=== PATIENT | male | born 1940 | race Caucasian/White ===

== ENCOUNTER → 2018-10-28 | Outpatient (CLI) | payer MEDICARE ==
[~2018-10-28] MED LIST: CLON-412 PO; COUM1TAB17 PO; COUM2.5T17 PO; FURO40TA2 PO; LISI40TA PO; LISI40TAB PO; METF10004 PO; MIRA3350 PO; OXYC1TAB15 PO; PERC5TAB12 PO; PRAV10TA4 PO; PRAV40TA2 PO; PROP20TA72 PO
[2018-10-28 10:06] LABS: HEMATOCRIT 43.6 % (42.0-52.0); HEMOGLOBIN 13.8 g/dl (13.5-17.5); MEAN CORPUSCULAR HEMOGLOBIN 30.1 pg (27.0-33.0); MEAN CORPUSCULAR HGB CONC 31.7 g/dl (32.0-36.5); MEAN CORPUSCULAR VOLUME 95.2 fl (80.0-96.0); PLATELET COUNT, AUTOMATED 210 10^3/uL (150-450); RED BLOOD COUNT 4.58 10^6/uL (4.30-6.10); WHITE BLOOD COUNT 8.1 10^3/uL (4.0-10.0)
--- NOTE | 2018-10-28 10:16 | REP ---
Chest two views HISTORY: Right knee arthritis Comparison: 03/19/2016 The lungs are clear. The cardiac silhouette is enlarged. The pulmonary vasculature is normal in appearance. The bony structure is intact. IMPRESSION: Cardiomegaly. Electronically Signed by Sony Luu MD 10/28/2018 10:08 A
[2018-10-28 10:24] LABS: INR 2.43; PROTHROMBIN TIME 26.9 SECONDS (12.1-14.4)
[2018-10-28 10:32] LABS: ERYTHROCYTE SEDIMENTATION RATE 24 mm/hr (0-20)
[2018-10-28 10:35] LABS: ALBUMIN 3.4 GM/DL (3.2-5.2); ALT/SGPT 18 U/L (12-78); BLOOD UREA NITROGEN 17 MG/DL (7-18); CALCIUM LEVEL 8.8 MG/DL (8.8-10.2); CARBON DIOXIDE LEVEL 30 MEQ/L (21-32); CHLORIDE LEVEL 104 MEQ/L (98-107); CREATININE FOR GFR 0.86 MG/DL (0.70-1.30); GLOMERULAR FILTRATION RATE > 60.0 (>42); GLUCOSE, FASTING 116 MG/DL (70-100); POTASSIUM SERUM 4.8 MEQ/L (3.5-5.1); SODIUM LEVEL 142 MEQ/L (136-145); TOTAL PROTEIN 7.6 GM/DL (6.4-8.2)
--- NOTE | 2018-10-28 22:04 | ECGEPIP ---
Stationary ECG Study 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
== END ==
LOC: M LAB 09:02
PROVIDERS: ATTEND Orthopaedic Surgery
DX: Z01.818 Encounter for other preprocedural examination (principal); I48.91 Unspecified atrial fibrillation; I51.5 Myocardial degeneration; M16.11 Unilateral primary osteoarthritis, right hip

== ENCOUNTER 2018-11-26 20:46 | Emergency (ER) | payer MEDICARE ==
[~2018-11-26] VITALS: Ht 180.3 cm; Wt 143.2 kg
[2018-11-26 22:19] LABS: BASO % 0.5 % (0.0-1.0); EOS # 0.1 10^3/uL (0.0-0.50); EOS % 1.8 % (0.0-3.0); HEMATOCRIT 44.3 % (42.0-52.0); LYMPH # 1.4 10^3/uL (1.5-4.5); LYMPH % 17.7 % (24.0-44.0); MEAN CORPUSCULAR HGB CONC 31.6 g/dl (32.0-36.5); MEAN CORPUSCULAR VOLUME 94.9 fl (80.0-96.0); MONO # 0.7 10^3/uL (0.0-0.8); MONO % 8.3 % (0.0-5.0); NEUTROPHILS # 5.7 10^3/uL (1.8-7.7); NEUTROPHILS % 71.4 % (36.0-66.0); PLATELET COUNT, AUTOMATED 182 10^3/uL (150-450); RED BLOOD COUNT 4.67 10^6/uL (4.30-6.10); WHITE BLOOD COUNT 7.9 10^3/uL (4.0-10.0)
[2018-11-26 22:49] LABS: ERYTHROCYTE SEDIMENTATION RATE 54 mm/hr (0-20)
[2018-11-26 22:52] LABS: BLOOD UREA NITROGEN 18 MG/DL (7-18); C REACTIVE PROTEIN QUANTITATIV 1.44 MG/DL (0.00-0.30); CALCIUM LEVEL 8.5 MG/DL (8.8-10.2); CARBON DIOXIDE LEVEL 29 MEQ/L (21-32); CHLORIDE LEVEL 105 MEQ/L (98-107); CREATININE FOR GFR 0.97 MG/DL (0.70-1.30); GLOMERULAR FILTRATION RATE > 60.0 (>42); GLUCOSE, FASTING 174 MG/DL (70-100); POTASSIUM SERUM 4.1 MEQ/L (3.5-5.1); SODIUM LEVEL 140 MEQ/L (136-145)
--- NOTE | 2018-11-26 23:03 | REPVR ---
EXAM: US Duplex Right Lower Extremity Veins, Limited EXAM DATE/TIME: 11/26/2018 10:09 PM CLINICAL HISTORY: 78 years old, male; Signs and symptoms; Swelling (edema) of limb; Lower extremity, right; Additional info: Calf swelling right TECHNIQUE: Real-time Duplex ultrasound of the Right Lower Extremity with 2-D valencia scale, color Doppler flow and spectral waveform analysis. Limited exam was focused on the right lower extremity veins. COMPARISON: No relevant prior studies available. FINDINGS: Right deep veins: Unremarkable. The common femoral, femoral and popliteal veins are patent without thrombus. Normal Doppler waveforms. Normal compressibility and/or augmentation response. Right superficial veins: Unremarkable. Saphenofemoral junction is patent without thrombus. Soft tissues: Subcutaneous edema. IMPRESSION: No sonographic evidence of deep vein thrombosis. Electronically signed by: Naresh Florentino On 11/26/2018 23:03:21 PM
[2018-11-27] MEDS ORDERED: CLEO300C2 PO (00:50)
[2018-11-27] MEDS ORDERED: CLINDAMYCIN 150 MG CAP PO ONE (01:00)
[2018-11-27 01:02] VITALS: BP 148/78
--- NOTE | 2018-11-28 11:50 | REP ---
RIGHT FOOT SERIES: Four views of the right foot are performed. I see no definite fracture. There may be an old fracture at the base of the 2nd proximal phalanx. The distal cortex of the 5th distal phalanx is mildly blurred. I cannot exclude underlying osteomyelitis. Otherwise. No overt osseous destruction is seen, and there is no periosteal reaction. There is mild to moderate inferior calcaneal spurring. There are mild scattered vascular calcifications. There is mild diffuse narrowing, sclerosis, and spurring at the intertarsal and tarsal/metatarsal joints. There is diffuse narrowing of the interphalangeal joints. There is slight narrowing of the 1st metatarsophalangeal joint. IMPRESSION: Degenerative changes. Blurriness of the cortical margin of the 5th distal phalanx. Cannot exclude underlying osteomyelitis Otherwise, no overt osseous destruction or periosteal reaction. I see no acute fracture. Electronically Signed by Ronnie Ptety MD 11/28/2018 10:58 P
--- NOTE | 2018-11-29 12:28 | ED PDOC ---
Post-Departure Follow-Up dr robertson faxed formal report of right foot for fu Rosa Flores MD Nov 29, 2018 12:28
== END 2018-11-27 01:04 | disposition home or self-care (01) ==
LOC: M ED 20:46
DX: L03.031 Cellulitis of right toe (principal); M79.89 Other specified soft tissue disorders; I87.8 Other specified disorders of veins; I10 Essential (primary) hypertension; I48.91 Unspecified atrial fibrillation; E11.9 Type 2 diabetes mellitus without complications; I27.20 Pulmonary hypertension, unspecified; Z87.442 Personal history of urinary calculi; Z79.899 Other long term (current) drug therapy; Z79.01 Long term (current) use of anticoagulants; Z79.84 Long term (current) use of oral hypoglycemic drugs

== ENCOUNTER → 2018-12-01 | Outpatient (REF) | payer MEDICARE ==
[~2018-12-01] MED LIST changes: +CLEO300C2 PO
== END ==
LOC: M LAB REF 10:53
PROVIDERS: ATTEND Nurse Practitioner Adult Health
DX: R19.7 Diarrhea, unspecified (principal); L03.031 Cellulitis of right toe; L97.829 Non-pressure chronic ulcer of other part of left lower leg with unspecified severity

== ENCOUNTER → 2018-12-26 | Outpatient (REF) | payer MEDICARE | LOC: M LABDRAW1 15:38 | PROVIDERS: ATTEND Podiatrist | DX: E11.51 Type 2 diabetes mellitus with diabetic peripheral angiopathy without gangrene (principal); L89.892 Pressure ulcer of other site, stage 2; M79.671 Pain in right foot ==

== ENCOUNTER → 2018-12-28 | Outpatient (REF) | payer MEDICARE | LOC: M LAB REF 13:11 | PROVIDERS: ATTEND Nurse Practitioner Adult Health | DX: L97.829 Non-pressure chronic ulcer of other part of left lower leg with unspecified severity (principal) ==

== ENCOUNTER → 2019-01-12 | Outpatient (REF) | payer MEDICARE ==
[2019-01-12 13:44] LABS: BASO # 0.1 10^3/uL (0.0-0.2); BASO % 0.9 % (0.0-1.0); EOS # 0.1 10^3/uL (0.0-0.50); EOS % 1.2 % (0.0-3.0); LYMPH # 1.3 10^3/uL (1.5-4.5); LYMPH % 19.2 % (24.0-44.0); MEAN CORPUSCULAR HEMOGLOBIN 30.7 pg (27.0-33.0); MEAN CORPUSCULAR VOLUME 99.3 fl (80.0-96.0); MONO # 0.5 10^3/uL (0.0-0.8); NEUTROPHILS # 4.6 10^3/uL (1.8-7.7); NEUTROPHILS % 70.4 % (36.0-66.0); PLATELET COUNT, AUTOMATED 179 10^3/uL (150-450); RED BLOOD COUNT 4.23 10^6/uL (4.30-6.10); WHITE BLOOD COUNT 6.5 10^3/uL (4.0-10.0)
== END ==
LOC: M LABDRAW1 11:38
PROVIDERS: ATTEND Podiatrist
DX: R79.82 Elevated C-reactive protein (CRP) (principal); L89.892 Pressure ulcer of other site, stage 2; E11.51 Type 2 diabetes mellitus with diabetic peripheral angiopathy without gangrene

== ENCOUNTER → 2019-01-17 | Outpatient (REF) | payer MEDICARE ==
[~2019-01-17] MED LIST changes: +LISI40TA52 PO; -LISI40TAB PO
== END ==
LOC: M LABDRAW1 11:54
PROVIDERS: ATTEND Podiatrist
DX: M20.40 Other hammer toe(s) (acquired), unspecified foot (principal); L89.892 Pressure ulcer of other site, stage 2; M86.28 Subacute osteomyelitis, other site

== ENCOUNTER → 2019-03-02 | Outpatient (REF) | payer MEDICARE | LOC: M LAB REF 17:02 | PROVIDERS: ATTEND Internal Medicine | DX: M86.9 Osteomyelitis, unspecified (principal) ==

== ENCOUNTER → 2019-03-20 | Outpatient (REF) | payer MEDICARE ==
[2019-03-20 13:19] LABS: BASO # 0.1 10^3/uL (0.0-0.2); BASO % 0.8 % (0.0-1.0); EOS # 0.1 10^3/uL (0.0-0.50); EOS % 1.4 % (0.0-3.0); HEMATOCRIT 43.8 % (42.0-52.0); HEMOGLOBIN 13.6 g/dl (13.5-17.5); LYMPH # 1.2 10^3/uL (1.5-4.5); LYMPH % 18.5 % (24.0-44.0); MEAN CORPUSCULAR HEMOGLOBIN 30.4 pg (27.0-33.0); MEAN CORPUSCULAR HGB CONC 31.1 g/dl (32.0-36.5); MONO # 0.5 10^3/uL (0.0-0.8); MONO % 7.4 % (0.0-5.0); NEUTROPHILS # 4.8 10^3/uL (1.8-7.7); NEUTROPHILS % 71.7 % (36.0-66.0); PLATELET COUNT, AUTOMATED 172 10^3/uL (150-450); RED BLOOD COUNT 4.47 10^6/uL (4.30-6.10); WHITE BLOOD COUNT 6.7 10^3/uL (4.0-10.0)
[2019-03-20 14:11] LABS: ERYTHROCYTE SEDIMENTATION RATE 25 mm/hr (0-20)
== END ==
LOC: M SFHCPLAZ 10:34
PROVIDERS: ATTEND Internal Medicine Infectious Disease
DX: M86.9 Osteomyelitis, unspecified (principal)
CPT/HCPCS: 85025; 85652; 86140; G0463

== ENCOUNTER → 2019-04-04 | Outpatient (REF) | payer MEDICARE | LOC: M LAB REF 17:17 | PROVIDERS: ATTEND Internal Medicine | DX: M86.9 Osteomyelitis, unspecified (principal) ==

== ENCOUNTER → 2019-06-15 | Outpatient (CLI) | payer MEDICARE ==
[~2019-06-15] MED LIST changes: +SPIR-10 PO
[2019-06-15 08:49] LABS: HEMATOCRIT 43.9 % (42.0-52.0); HEMOGLOBIN 13.9 g/dl (13.5-17.5); MEAN CORPUSCULAR HEMOGLOBIN 31.2 pg (27.0-33.0); MEAN CORPUSCULAR HGB CONC 31.7 g/dl (32.0-36.5); MEAN CORPUSCULAR VOLUME 98.4 fl (80.0-96.0); PLATELET COUNT, AUTOMATED 168 10^3/uL (150-450); RED BLOOD COUNT 4.46 10^6/uL (4.30-6.10); WHITE BLOOD COUNT 7.5 10^3/uL (4.0-10.0)
[2019-06-15 09:15] LABS: ERYTHROCYTE SEDIMENTATION RATE 27 mm/hr (0-20)
[2019-06-15 09:19] LABS: ALBUMIN 3.7 GM/DL (3.2-5.2); ALT/SGPT 16 U/L (12-78); BILIRUBIN,TOTAL 1.4 MG/DL (0.2-1.0); BLOOD UREA NITROGEN 19 MG/DL (7-18); CARBON DIOXIDE LEVEL 32 MEQ/L (21-32); CHLORIDE LEVEL 104 MEQ/L (98-107); CREATININE FOR GFR 0.89 MG/DL (0.70-1.30); GLOMERULAR FILTRATION RATE > 60.0 (>42); GLUCOSE, FASTING 111 MG/DL (70-100); POTASSIUM SERUM 4.5 MEQ/L (3.5-5.1); SODIUM LEVEL 141 MEQ/L (136-145); TOTAL PROTEIN 7.6 GM/DL (6.4-8.2)
[2019-06-15 09:25] LABS: INR 2.23; PROTHROMBIN TIME 24.5 SECONDS (11.8-14.0)
--- NOTE | 2019-06-15 11:07 | ECGEPIP ---
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
--- NOTE | 2019-06-15 22:00 | REP ---
Nickel: Preoperative assessment. Technique: PA and lateral. Comparison: 10/28/2018. Findings: Moderate right pleural effusion and right lower lobe atelectasis is appreciated. Interstitial edema cannot be excluded. Cardiomegaly noted. No pneumothorax. Skeletal structures intact. Impression: Chronic stable cardiomegaly with evidence to suggest mild interstitial edema including moderate right pleural effusion and right basilar atelectasis. Electronically Signed by Ranjan Moreira MD 06/15/2019 09:52 P
== END ==
LOC: M LAB 07:48
PROVIDERS: ATTEND Orthopaedic Surgery
DX: Z01.818 Encounter for other preprocedural examination (principal); I48.91 Unspecified atrial fibrillation; E11.9 Type 2 diabetes mellitus without complications

== ENCOUNTER → 2020-05-11 | Emergency (ER) | payer MEDICARE | END | disposition home or self-care (01) | LOC: M ED 10:10 | DX: S89.92XA Unspecified injury of left lower leg, initial encounter (principal); V43.42XA Person boarding or alighting a car injured in collision with other type car, initial encounter ==

== ENCOUNTER → 2021-11-10 | Outpatient (CLI) | payer MEDICARE ==
[~2021-11-10] MED LIST changes: -LISI40TA PO; +LISI40TA4 PO; -OXYC1TAB15 PO; +OXYC7.5T3 PO
[2021-11-10 16:08] LABS: HEMATOCRIT 42.8 % (42.0-52.0); MEAN CORPUSCULAR HEMOGLOBIN 31.2 pg (27.0-33.0); MEAN CORPUSCULAR HGB CONC 30.4 g/dl (32.0-36.5); MEAN CORPUSCULAR VOLUME 102.6 fl (80.0-96.0); PLATELET COUNT, AUTOMATED 222 10^3/uL (150-450); RED BLOOD COUNT 4.17 10^6/uL (4.30-6.10); WHITE BLOOD COUNT 7.3 10^3/uL (4.0-10.0)
[2021-11-10 16:27] LABS: ALBUMIN 3.8 GM/DL (3.2-5.2); BILIRUBIN,TOTAL 0.8 MG/DL (0.2-1.0); CALCIUM LEVEL 9.2 MG/DL (8.8-10.2); CREATININE FOR GFR 1.41 MG/DL (0.70-1.30); GLOMERULAR FILTRATION RATE 51.4 (>35); MAGNESIUM LEVEL 2.3 MG/DL (1.8-2.4); POTASSIUM SERUM 4.4 MEQ/L (3.5-5.1); TOTAL PROTEIN 8.1 GM/DL (6.4-8.2)
== END ==
LOC: M WUC 10:57
PROVIDERS: ATTEND Physician Assistant
DX: I51.7 Cardiomegaly (principal); I50.9 Heart failure, unspecified; J81.0 Acute pulmonary edema; R07.9 Chest pain, unspecified; I25.10 Atherosclerotic heart disease of native coronary artery without angina pectoris

== ENCOUNTER → 2022-04-15 | Outpatient (CLI) | payer MEDICARE ==
[~2022-04-15] MED LIST changes: +AMIO200T37 PO; +AMOX875T2 PO; +BIMA01SOL OU; +COMB0.2S OU; +ELIQ2.5T PO; +LEVO750T13 PO; +LEXA1TAB PO; +MIDO10TA PO; +TORS20TA2 PO
== END ==
LOC: M WUC 15:30
PROVIDERS: ATTEND Nurse Practitioner Adult Health
DX: R15.9 Full incontinence of feces (principal); R32 Unspecified urinary incontinence; M25.78 Osteophyte, vertebrae; R93.7 Abnormal findings on diagnostic imaging of other parts of musculoskeletal system

== ENCOUNTER 2022-04-16 12:30 | Emergency (ER) | payer MEDICARE ==
[~2022-04-16] VITALS: Ht 182.9 cm; Wt 136.4 kg
[2022-04-16 15:25] LABS: BASO % 0.2 % (0.0-1.0); EOS # 0.1 10^3/uL (0.0-0.5); EOS % 0.5 % (0.0-3.0); HEMATOCRIT 38.6 % (42.0-52.0); LYMPH % 7.1 % (24.0-44.0); MEAN CORPUSCULAR HEMOGLOBIN 28.7 pg (27.0-33.0); MEAN CORPUSCULAR HGB CONC 31.1 g/dl (32.0-36.5); MEAN CORPUSCULAR VOLUME 92.3 fl (80.0-96.0); MONO % 7.1 % (2.0-8.0); NEUTROPHILS # 11.9 10^3/uL (1.5-8.5); NEUTROPHILS % 84.2 % (36.0-66.0); PLATELET COUNT, AUTOMATED 329 10^3/uL (150-450); RED BLOOD COUNT 4.18 10^6/uL (4.30-6.10); WHITE BLOOD COUNT 14.1 10^3/uL (4.0-10.0)
[2022-04-16] MEDS ORDERED: PERCOCET 5MG/325MG TAB PO ONE (15:25)
[2022-04-16 15:39] LABS: INR 1.46; PROTHROMBIN TIME 18.2 SECONDS (12.7-14.5)
[2022-04-16 15:40] LABS: PARTIAL THROMBOPLASTIN TIME 35.9 SECONDS (25.9-37.0)
[2022-04-16 15:44] LABS: CALCIUM LEVEL 8.6 MG/DL (8.8-10.2); CREATININE FOR GFR 3.3 MG/DL (0.70-1.30); GLOMERULAR FILTRATION RATE 19.2 (>35); POTASSIUM SERUM 5.8 MEQ/L (3.5-5.1)
[2022-04-16 15:46] LABS: RSV AMPLIFICATION NEGATIVE (NEGATIVE)
[2022-04-16 19:55] VITALS: BP 146/80
== END 2022-04-16 20:19 | disposition short-term general hospital (02) ==
LOC: EDBD 12:30 → M ED 12:30
DX: S22.069A Unspecified fracture of T7-T8 vertebra, initial encounter for closed fracture (principal); W01.10XA Fall on same level from slipping, tripping and stumbling with subsequent striking against unspecified object, initial encounter; Y92.099 Unspecified place in other non-institutional residence as the place of occurrence of the external cause; R39.14 Feeling of incomplete bladder emptying; R15.9 Full incontinence of feces; K56.41 Fecal impaction; R91.8 Other nonspecific abnormal finding of lung field; J90 Pleural effusion, not elsewhere classified; N20.0 Calculus of kidney; M51.36 Other intervertebral disc degeneration, lumbar region; I48.91 Unspecified atrial fibrillation; I45.19 Other right bundle-branch block; E11.9 Type 2 diabetes mellitus without complications; E78.5 Hyperlipidemia, unspecified; I27.20 Pulmonary hypertension, unspecified; Z86.73 Personal history of transient ischemic attack (TIA), and cerebral infarction without residual deficits; Z87.891 Personal history of nicotine dependence; Z79.01 Long term (current) use of anticoagulants; Z79.899 Other long term (current) drug therapy

== ENCOUNTER → 2022-05-05 | Outpatient (REF) | payer MEDICARE ==
[~2022-05-05] MED LIST changes: +CEPH500C PO; +DORZ2SOL5 OU; +LEVO1TAB40 PO; -LEVO750T13 PO; +METR-265 PO; +SERT25TA21 PO
[2022-05-05 08:35] LABS: BASO % 0.5 % (0.0-1.0); EOS # 0.2 10^3/uL (0.0-0.5); HEMATOCRIT 35.4 % (42.0-52.0); LYMPH # 1.3 10^3/uL (1.5-5.0); LYMPH % 15.3 % (24.0-44.0); MEAN CORPUSCULAR HGB CONC 31.1 g/dl (32.0-36.5); MEAN CORPUSCULAR VOLUME 93.4 fl (80.0-96.0); MONO # 0.8 10^3/uL (0.0-0.8); MONO % 9.9 % (2.0-8.0); NEUTROPHILS # 5.9 10^3/uL (1.5-8.5); NEUTROPHILS % 71.8 % (36.0-66.0); PLATELET COUNT, AUTOMATED 173 10^3/uL (150-450); RED BLOOD COUNT 3.79 10^6/uL (4.30-6.10); WHITE BLOOD COUNT 8.2 10^3/uL (4.0-10.0)
[2022-05-05 09:05] LABS: ALBUMIN 2.3 GM/DL (3.2-5.2); BILIRUBIN,TOTAL 0.9 MG/DL (0.2-1.0); CALCIUM LEVEL 8.7 MG/DL (8.8-10.2); CREATININE FOR GFR 1.33 MG/DL (0.70-1.30); GLOMERULAR FILTRATION RATE 54.8 (>35); POTASSIUM SERUM 3.8 MEQ/L (3.5-5.1); THYROID STIMULATING HORMONE 0.57 uIU/ML (0.358-3.740); TOTAL PROTEIN 6.8 GM/DL (6.4-8.2)
[2022-05-05 10:10] LABS: HEMOGLOBIN A1c 5.8 %
== END ==
LOC: SKLAB5 07:00
PROVIDERS: ATTEND Nurse Practitioner Family
DX: N17.9 Acute kidney failure, unspecified (principal); E11.9 Type 2 diabetes mellitus without complications; T14.8XXA Other injury of unspecified body region, initial encounter

== ENCOUNTER → 2022-05-15 | Outpatient (CLI) | payer MEDICARE ==
[~2022-05-15] MED LIST changes: -CEPH500C PO; -DORZ2SOL5 OU; -LEVO1TAB40 PO; +LEVO750T13 PO; -METR-265 PO; -SERT25TA21 PO
== END ==
LOC: M RAD 11:19
PROVIDERS: ATTEND Nurse Practitioner Family
DX: M79.89 Other specified soft tissue disorders (principal)

== ENCOUNTER 2022-06-21 21:15 | Inpatient (IN) | payer MEDICARE ==
[~2022-06-21] VITALS: Ht 182.9 cm; Wt 126.1 kg
[~2022-06-21 21:15] MED LIST changes: +LEVO1TAB40 PO; -LEVO750T13 PO
[2022-06-21 22:00] LABS: BASO % 0.4 % (0.0-1.0); EOS # 0.1 10^3/uL (0.0-0.5); EOS % 0.8 % (0.0-3.0); HEMATOCRIT 33.2 % (42.0-52.0); HEMOGLOBIN 9.7 g/dl (13.5-17.5); LYMPH # 0.9 10^3/uL (1.5-5.0); LYMPH % 10.3 % (24.0-44.0); MEAN CORPUSCULAR HEMOGLOBIN 27.7 pg (27.0-33.0); MEAN CORPUSCULAR HGB CONC 29.2 g/dl (32.0-36.5); MEAN CORPUSCULAR VOLUME 94.9 fl (80.0-96.0); MONO # 0.9 10^3/uL (0.0-0.8); MONO % 10.8 % (2.0-8.0); NEUTROPHILS # 6.6 10^3/uL (1.5-8.5); NEUTROPHILS % 77.2 % (36.0-66.0); PLATELET COUNT, AUTOMATED 260 10^3/uL (150-450); WHITE BLOOD COUNT 8.5 10^3/uL (4.0-10.0)
[2022-06-21] MEDS ORDERED: FUROSEMIDE 40MG/4ML VIAL (J1940) IV ONE (22:00)
[2022-06-21 22:47] LABS: CK-MB VALUE MASS < 1.0 NG/ML (<3.6); CPK CREATINE PHOSPHOKINASE 79 U/L (39-308); MB/CK RELATIVE INDEX 1.27 (< OR =4)
[2022-06-21 22:53] LABS: ALBUMIN 2.5 GM/DL (3.2-5.2); BILIRUBIN,DIRECT 0.2 MG/DL (0.0-0.2); BILIRUBIN,TOTAL 0.9 MG/DL (0.2-1.0); CALCIUM LEVEL 8.7 MG/DL (8.8-10.2); CREATININE FOR GFR 1.94 MG/DL (0.70-1.30); GLOMERULAR FILTRATION RATE 35.4 (>35); POTASSIUM SERUM 5.9 MEQ/L (3.5-5.1); TOTAL PROTEIN 7.2 GM/DL (6.4-8.2)
[2022-06-21 23:15] LABS: C REACTIVE PROTEIN QUANTITATIV 7.32 MG/DL (0.00-0.30)
[2022-06-22 00:07] LABS: CK-MB VALUE MASS < 1.0 NG/ML (<3.6); CPK CREATINE PHOSPHOKINASE 334 U/L (39-308)
[2022-06-22 00:09] LABS: ABG BASE EXCESS 4.3 (-2.0-2.0); ABG O2 SATURATION 98.9 % (95.0-99.0); ABG PARTIAL PRESSURE CO2 44.1 mmHg (35.0-45.0); ABG PARTIAL PRESSURE O2 119.9 mmHg (75.0-100.0); ABG STANDARD HCO3 28.3 MEQ/L (22.0-26.0); ABG TOTAL CO2 30.4 MEQ/L (23.0-31.0); ABG pH (ARTERIAL) 7.436 UNITS (7.350-7.450)
[2022-06-22] MEDS ORDERED: cefTRIAXone SOD 1 GM in D5W MINI-BAG PLUS 50 ML IV ONE (02:35)
[2022-06-22] MEDS ORDERED: ACETAMINOPHEN TAB 650MG DOSE (2X325MG) PO PRN (03:30)
[2022-06-22] MEDS ORDERED: DORZ2SOL5 OU (03:37)
[2022-06-22] MEDS ORDERED: SERT25TA21 PO (03:37)
[2022-06-22] MEDS ORDERED: PERCOCET 5MG/325MG TAB PO PRN ×2 (03:40)
[2022-06-22] MEDS ORDERED: MIRALAX *UNIT DOSE* 17GM PACKET PO PRN (03:40)
[2022-06-22] MEDS ORDERED: HOME MED LIST COMPLETE! XX SCH (03:40)
[2022-06-22 05:13] LABS: HEMATOCRIT 33.9 % (42.0-52.0); HEMOGLOBIN 9.9 g/dl (13.5-17.5); MEAN CORPUSCULAR HEMOGLOBIN 27.9 pg (27.0-33.0); MEAN CORPUSCULAR HGB CONC 29.2 g/dl (32.0-36.5); MEAN CORPUSCULAR VOLUME 95.5 fl (80.0-96.0); PLATELET COUNT, AUTOMATED 262 10^3/uL (150-450); RED BLOOD COUNT 3.55 10^6/uL (4.30-6.10); WHITE BLOOD COUNT 9.1 10^3/uL (4.0-10.0)
[2022-06-22 05:23] LABS: INR 1.53; PROTHROMBIN TIME 18.8 SECONDS (12.7-14.5)
[2022-06-22 05:24] LABS: PARTIAL THROMBOPLASTIN TIME 37.7 SECONDS (25.9-37.0)
[2022-06-22 05:35] VITALS: BP 114/65
[2022-06-22 05:54] LABS: CALCIUM LEVEL 8.7 MG/DL (8.8-10.2); CREATININE FOR GFR 1.77 MG/DL (0.70-1.30); GLOMERULAR FILTRATION RATE 39.4 (>35); MAGNESIUM LEVEL 2.5 MG/DL (1.8-2.4); POTASSIUM SERUM 4.4 MEQ/L (3.5-5.1)
[2022-06-22 06:32] LABS: CREATININE,RANDOM URINE 31.3 MG/DL; SODIUM,RANDOM URINE 88 MEQ/L; TOTAL PROTEIN,RANDOM URINE 40.2 MG/DL (0.0-12.0)
[2022-06-22 06:46] LABS: APPEARANCE, URINE MANUAL HAZY (CLEAR); COLOR, URINE MANUAL YELLOW (YELLOW)
[2022-06-22 06:47] LABS: BILIRUBIN, URINE MANUAL NEGATIVE (NEGATIVE); BLOOD URINE MANUAL POSITIVE (NEGATIVE); GLUCOSE, URINE (UA) MANUAL NEGATIVE (NEGATIVE); KETONE, URINE MANUAL NEGATIVE (NEGATIVE); LEUKOCYTE ESTERASE, URINE MAN POSITIVE (NEGATIVE); NITRITE, URINE MANUAL POSITIVE (NEGATIVE); PH,URINE MAN 5.5 UNITS (5.0 - 7.0); PROTEIN, URINE MANUAL TRACE mg/dL (NEGATIVE); SPECIFIC GRAVITY,URINE MANUAL 1.015 (1.002-1.035); UROBILINOGEN, URINE MANUAL NORMAL (NORMAL)
[2022-06-22 06:53] LABS: OSMOLALITY URINE 377 MOSM/KG (50-1400)
[2022-06-22 06:58] LABS: AMORPHOUS SEDIMENT, URINE SMALL AMOUNT (NEGATIVE); BACTERIA, URINE SMALL AMOUNT; HYALINE CAST, URINE NONE SEEN /lpf (0-1); RENAL EPITHELIAL CELLS, URINE SMALL AMOUNT /hpf; SQUAMOUS EPITHELIAL CELL URINE NONE SEEN /hpf (SMALL AMT); WBC, URINE TNTC /hpf (0-3)
[2022-06-22 07:26] LABS: C REACTIVE PROTEIN QUANTITATIV 7.18 MG/DL (0.00-0.30)
[2022-06-22 08:05] LABS: ERYTHROCYTE SEDIMENTATION RATE 71 mm/hr (0-20)
[2022-06-22] MEDS: DOCUSATE SODIUM 100MG CAPSULE PO SCH ×2 (08:43→21:08)
[2022-06-22] MEDS: ceFAZolin SOD 1 GM in D5W MINI-BAG PLUS 50 ML IV SCH ×2 (08:43→16:09)
[2022-06-22] MEDS: SERTRALINE HCL 25 MG TABLET PO SCH (08:43)
[2022-06-22] MEDS: FUROSEMIDE 40MG/4ML VIAL (J1940) IV SCH ×2 (08:44→21:08)
[2022-06-22] MEDS: COSOPT OCUMETER PLUS 10ML (DORZOLAMIDE/TIMOLOL) OU SCH ×2 (08:44→22:47)
[2022-06-22] MEDS: SPIRONOLACTONE 12.5MG PER 1/2 TABLET PO SCH (08:45)
[2022-06-22] MEDS: APIXABAN 2.5 MG TAB (ELIQUIS) PO SCH ×2 (08:54→21:09)
[2022-06-22] MEDS: metroNIDAZOLE 500 MG in IV 1 EA IV SCH ×2 (09:36→16:59)
[2022-06-22 10:15] LABS: CHOLESTEROL RISK RATIO 2.348 (<5)
[2022-06-22 10:27] LABS: HEMOGLOBIN A1c 5.6 %
[2022-06-22 12:15] LABS: FREE T4 2.79 NG/DL (0.76-1.46); THYROID STIMULATING HORMONE 0.024 uIU/ML (0.358-3.740)
[2022-06-22 12:17] VITALS: BP 113/63
[2022-06-22 14:00] VITALS: BP 120/70
[2022-06-22] MEDS: NYSTATIN 100,000 UNITS/GM TOPICAL PWD 15 GM TOP PRN (14:20)
[2022-06-22] MEDS: PRAVASTATIN 20 MG TAB PO SCH (17:00)
[2022-06-22] MEDS: AMIODARONE 200 MG TAB (PACERONE) PO SCH (21:08)
[2022-06-22] MEDS: LATANOPROST 0.005% OPHTH SOLN 2.5 ML OU SCH (21:08)
[2022-06-22 22:00] VITALS: BP 105/62
[2022-06-23] MEDS: ceFAZolin SOD 1 GM in D5W MINI-BAG PLUS 50 ML IV SCH ×2 (01:06→08:35)
[2022-06-23] MEDS: metroNIDAZOLE 500 MG in IV 1 EA IV SCH (02:13)
[2022-06-23 04:48] VITALS: BP 120/73
[2022-06-23 06:48] LABS: HEMATOCRIT 32.7 % (42.0-52.0); HEMOGLOBIN 9.3 g/dl (13.5-17.5); MEAN CORPUSCULAR HEMOGLOBIN 27.2 pg (27.0-33.0); MEAN CORPUSCULAR HGB CONC 28.4 g/dl (32.0-36.5); MEAN CORPUSCULAR VOLUME 95.6 fl (80.0-96.0); PLATELET COUNT, AUTOMATED 249 10^3/uL (150-450); RED BLOOD COUNT 3.42 10^6/uL (4.30-6.10); WHITE BLOOD COUNT 9.2 10^3/uL (4.0-10.0)
[2022-06-23 07:27] LABS: CALCIUM LEVEL 8.7 MG/DL (8.8-10.2); CREATININE FOR GFR 1.66 MG/DL (0.70-1.30); GLOMERULAR FILTRATION RATE 42.4 (>35); MAGNESIUM LEVEL 2.6 MG/DL (1.8-2.4); POTASSIUM SERUM 4.2 MEQ/L (3.5-5.1)
[2022-06-23] MEDS: FUROSEMIDE 40MG/4ML VIAL (J1940) IV SCH ×2 (08:13→22:29)
[2022-06-23] MEDS: SPIRONOLACTONE 12.5MG PER 1/2 TABLET PO SCH (08:21)
[2022-06-23] MEDS: SERTRALINE HCL 25 MG TABLET PO SCH (08:22)
[2022-06-23] MEDS: APIXABAN 2.5 MG TAB (ELIQUIS) PO SCH ×2 (08:22→22:29)
[2022-06-23] MEDS: DOCUSATE SODIUM 100MG CAPSULE PO SCH ×2 (08:22→22:29)
[2022-06-23] MEDS: COSOPT OCUMETER PLUS 10ML (DORZOLAMIDE/TIMOLOL) OU SCH ×2 (08:22→22:30)
[2022-06-23] MEDS: DOXYCYCLINE HYCLATE 100MG TABLET PO SCH ×2 (09:48→22:29)
[2022-06-23 11:22] LABS: FREE T4 2.6 NG/DL (0.76-1.46); THYROID STIMULATING HORMONE 0.015 uIU/ML (0.358-3.740)
[2022-06-23 11:52] LABS: HEPATITIS B CORE ANTIBODY IGM NEGATIVE (NEGATIVE); HEPATITIS B SURFACE ANTIGEN NEGATIVE (NEGATIVE); HEPATITIS C VIRUS ABY INDEX < 0.0 INDEX (<0.8)
[2022-06-23] MEDS ORDERED: VANCOMYCIN HCL 750 MG, VIAL MATE ADAPTER 1 EACH in NS 250 ML IV SCH (11:55)
[2022-06-23 14:00] VITALS: BP 128/50
[2022-06-23] MEDS: PRAVASTATIN 20 MG TAB PO SCH (17:35)
[2022-06-23 21:04] VITALS: BP 115/73
[2022-06-23] MEDS: AMIODARONE 200 MG TAB (PACERONE) PO SCH (22:29)
[2022-06-23] MEDS: LATANOPROST 0.005% OPHTH SOLN 2.5 ML OU SCH (22:29)
[2022-06-23] MEDS: DIMETHICONE 2% OINTMENT(VANICREAM) 70GM TUBE TOP SCH (22:30)
[2022-06-24 05:51] LABS: HEMOGLOBIN 10.4 g/dl (13.5-17.5); MEAN CORPUSCULAR HGB CONC 29.7 g/dl (32.0-36.5); MEAN CORPUSCULAR VOLUME 94.3 fl (80.0-96.0); PLATELET COUNT, AUTOMATED 237 10^3/uL (150-450); RED BLOOD COUNT 3.71 10^6/uL (4.30-6.10); WHITE BLOOD COUNT 10.3 10^3/uL (4.0-10.0)
[2022-06-24 06:00] VITALS: BP 117/72
[2022-06-24 06:31] LABS: C REACTIVE PROTEIN QUANTITATIV 7.27 MG/DL (0.00-0.30); CALCIUM LEVEL 8.6 MG/DL (8.8-10.2); CREATININE FOR GFR 1.56 MG/DL (0.70-1.30); GLOMERULAR FILTRATION RATE 45.6 (>35); MAGNESIUM LEVEL 2.6 MG/DL (1.8-2.4); POTASSIUM SERUM 4.1 MEQ/L (3.5-5.1)
[2022-06-24 10:39] VITALS: BP 98/56
[2022-06-24] MEDS: FUROSEMIDE 40MG/4ML VIAL (J1940) IV SCH ×2 (10:41→22:22)
[2022-06-24] MEDS: DOCUSATE SODIUM 100MG CAPSULE PO SCH ×2 (10:42→22:22)
[2022-06-24] MEDS: SPIRONOLACTONE 12.5MG PER 1/2 TABLET PO SCH (10:42)
[2022-06-24] MEDS: DOXYCYCLINE HYCLATE 100MG TABLET PO SCH (10:42)
[2022-06-24] MEDS: SERTRALINE HCL 25 MG TABLET PO SCH (10:42)
[2022-06-24] MEDS: APIXABAN 2.5 MG TAB (ELIQUIS) PO SCH ×2 (10:42→22:22)
[2022-06-24] MEDS: DIMETHICONE 2% OINTMENT(VANICREAM) 70GM TUBE TOP SCH ×2 (10:43→22:23)
[2022-06-24] MEDS: COSOPT OCUMETER PLUS 10ML (DORZOLAMIDE/TIMOLOL) OU SCH ×2 (10:44→22:23)
[2022-06-24 15:18] VITALS: BP 128/84
[2022-06-24] MEDS: PRAVASTATIN 20 MG TAB PO SCH (18:49)
[2022-06-24] MEDS: CEPHALEXIN 500 MG CAP PO SCH ×2 (18:49→22:22)
[2022-06-24 21:50] VITALS: BP 111/74
[2022-06-24] MEDS: AMIODARONE 200 MG TAB (PACERONE) PO SCH (22:22)
[2022-06-24] MEDS: metroNIDAZOLE (FLAGYL) 500MG TABLET PO SCH (22:22)
[2022-06-24] MEDS: LATANOPROST 0.005% OPHTH SOLN 2.5 ML OU SCH (22:23)
[2022-06-25 04:01] VITALS: O2SAT 93
[2022-06-25 05:45] VITALS: BP 107/65
[2022-06-25] MEDS: metroNIDAZOLE (FLAGYL) 500MG TABLET PO SCH ×3 (06:33→22:50)
[2022-06-25] MEDS: CEPHALEXIN 500 MG CAP PO SCH ×4 (06:33→22:50)
[2022-06-25 06:47] LABS: HEMATOCRIT 34.4 % (42.0-52.0); HEMOGLOBIN 9.9 g/dl (13.5-17.5); MEAN CORPUSCULAR HEMOGLOBIN 27.6 pg (27.0-33.0); MEAN CORPUSCULAR HGB CONC 28.8 g/dl (32.0-36.5); MEAN CORPUSCULAR VOLUME 95.8 fl (80.0-96.0); PLATELET COUNT, AUTOMATED 244 10^3/uL (150-450); RED BLOOD COUNT 3.59 10^6/uL (4.30-6.10); WHITE BLOOD COUNT 10.4 10^3/uL (4.0-10.0)
[2022-06-25 07:24] LABS: CREATININE FOR GFR 1.39 MG/DL (0.70-1.30); GLOMERULAR FILTRATION RATE 52.1 (>35); MAGNESIUM LEVEL 2.5 MG/DL (1.8-2.4); POTASSIUM SERUM 3.9 MEQ/L (3.5-5.1)
[2022-06-25 08:30] VITALS: BP 101/52
[2022-06-25] MEDS: DOCUSATE SODIUM 100MG CAPSULE PO SCH ×2 (10:03→22:49)
[2022-06-25] MEDS: SPIRONOLACTONE 12.5MG PER 1/2 TABLET PO SCH (10:04)
[2022-06-25] MEDS: APIXABAN 2.5 MG TAB (ELIQUIS) PO SCH ×2 (10:04→22:49)
[2022-06-25] MEDS: SERTRALINE HCL 25 MG TABLET PO SCH (10:04)
[2022-06-25] MEDS: FUROSEMIDE 40MG/4ML VIAL (J1940) IV SCH ×2 (10:06→17:10)
[2022-06-25] MEDS: DIMETHICONE 2% OINTMENT(VANICREAM) 70GM TUBE TOP SCH ×2 (10:07→22:49)
[2022-06-25] MEDS: COSOPT OCUMETER PLUS 10ML (DORZOLAMIDE/TIMOLOL) OU SCH ×3 (10:08→22:54)
[2022-06-25 14:00] VITALS: BP 111/68
[2022-06-25] MEDS: PRAVASTATIN 20 MG TAB PO SCH (17:10)
[2022-06-25 17:11] VITALS: BP 108/64
[2022-06-25] MEDS ORDERED: CEPH500C PO (18:44)
[2022-06-25] MEDS ORDERED: METR-265 PO (18:44)
[2022-06-25 21:00] VITALS: BP 112/57
[2022-06-25] MEDS: LATANOPROST 0.005% OPHTH SOLN 2.5 ML OU SCH (22:49)
[2022-06-25] MEDS: AMIODARONE 200 MG TAB (PACERONE) PO SCH (22:49)
[2022-06-25] MEDS: NYSTATIN 100,000 UNITS/GM TOPICAL PWD 15 GM TOP PRN (22:50)
[2022-06-26 03:33] VITALS: O2SAT 96
[2022-06-26] MEDS: metroNIDAZOLE (FLAGYL) 500MG TABLET PO SCH ×2 (05:28→12:11)
[2022-06-26] MEDS: CEPHALEXIN 500 MG CAP PO SCH ×2 (05:28→12:11)
[2022-06-26 06:00] VITALS: BP 106/67
[2022-06-26 06:35] LABS: HEMOGLOBIN 10.1 g/dl (13.5-17.5); MEAN CORPUSCULAR HEMOGLOBIN 28.1 pg (27.0-33.0); MEAN CORPUSCULAR HGB CONC 28.9 g/dl (32.0-36.5); MEAN CORPUSCULAR VOLUME 97.2 fl (80.0-96.0); PLATELET COUNT, AUTOMATED 249 10^3/uL (150-450); WHITE BLOOD COUNT 9.7 10^3/uL (4.0-10.0)
[2022-06-26 07:03] LABS: C REACTIVE PROTEIN QUANTITATIV 7.38 MG/DL (0.00-0.30); CALCIUM LEVEL 8.9 MG/DL (8.8-10.2); CREATININE FOR GFR 1.3 MG/DL (0.70-1.30); GLOMERULAR FILTRATION RATE 56.3 (>35); MAGNESIUM LEVEL 2.5 MG/DL (1.8-2.4); POTASSIUM SERUM 4.1 MEQ/L (3.5-5.1)
[2022-06-26] MEDS: SERTRALINE HCL 25 MG TABLET PO SCH (10:12)
[2022-06-26] MEDS: APIXABAN 2.5 MG TAB (ELIQUIS) PO SCH (10:12)
[2022-06-26] MEDS: DOCUSATE SODIUM 100MG CAPSULE PO SCH (10:12)
[2022-06-26] MEDS: SPIRONOLACTONE 12.5MG PER 1/2 TABLET PO SCH (10:12)
[2022-06-26] MEDS: FUROSEMIDE 40MG/4ML VIAL (J1940) IV SCH (10:14)
[2022-06-26] MEDS: COSOPT OCUMETER PLUS 10ML (DORZOLAMIDE/TIMOLOL) OU SCH (10:15)
[2022-06-26] MEDS: DIMETHICONE 2% OINTMENT(VANICREAM) 70GM TUBE TOP SCH (10:16)
[2022-06-26 13:24] LABS: FREE T3 2.8 PG/ML (2.2-4.0); FREE T4 2.48 NG/DL (0.76-1.46); THYROID STIMULATING HORMONE 0.015 uIU/ML (0.358-3.740)
== END 2022-06-26 16:00 | disposition short-term general hospital (02) | DRG 291 ==
LOC: EDBD 21:15 → M ED 21:15 → M ED INP 06-22 03:27 → M MSPAV 06-22 05:10
PROVIDERS: ADMIT Internal Medicine; ATTEND Internal Medicine
PROC: B246ZZZ Ultrasonography of Right and Left Heart (ICD-10-PCS; principal; 2022-06-23)
DX: I13.0 Hypertensive heart and chronic kidney disease with heart failure and stage 1 through stage 4 chronic kidney disease, or unspecified chronic kidney disease (principal); I50.33 Acute on chronic diastolic (congestive) heart failure; J91.8 Pleural effusion in other conditions classified elsewhere; N17.9 Acute kidney failure, unspecified; E87.3 Alkalosis; N39.0 Urinary tract infection, site not specified; I31.3 Pericardial effusion (noninflammatory); R78.81 Bacteremia; I48.91 Unspecified atrial fibrillation; Z79.01 Long term (current) use of anticoagulants; E78.5 Hyperlipidemia, unspecified; H40.9 Unspecified glaucoma; M54.9 Dorsalgia, unspecified; G89.29 Other chronic pain; Z90.49 Acquired absence of other specified parts of digestive tract; Z96.651 Presence of right artificial knee joint; Z89.021 Acquired absence of right finger(s); I25.10 Atherosclerotic heart disease of native coronary artery without angina pectoris; N49.2 Inflammatory disorders of scrotum; F32.A Depression, unspecified; F41.9 Anxiety disorder, unspecified; Z79.899 Other long term (current) drug therapy; Z20.822 Contact with and (suspected) exposure to COVID-19; E05.90 Thyrotoxicosis, unspecified without thyrotoxic crisis or storm; K80.20 Calculus of gallbladder without cholecystitis without obstruction; K74.60 Unspecified cirrhosis of liver; K86.9 Disease of pancreas, unspecified; N20.0 Calculus of kidney; I27.29 Other secondary pulmonary hypertension; N18.9 Chronic kidney disease, unspecified; E66.9 Obesity, unspecified

== ENCOUNTER → 2022-07-10 | Outpatient (REF) | payer MEDICARE ==
[~2022-07-10] MED LIST changes: +CEPH500C PO; +DORZ2SOL5 OU; +METR-265 PO; +SERT25TA21 PO
== END ==
LOC: M LAB REF 16:08
PROVIDERS: ATTEND Nurse Practitioner Adult Health
DX: E05.90 Thyrotoxicosis, unspecified without thyrotoxic crisis or storm (principal)

== ENCOUNTER 2022-08-18 09:36 | Inpatient (IN) | payer MEDICARE ==
[~2022-08-18] VITALS: Ht 182.9 cm; Wt 118.5 kg
[2022-08-18 10:18] LABS: BASO # 0.1 10^3/uL (0.0-0.2); BASO % 0.9 % (0.0-1.0); EOS # 0.1 10^3/uL (0.0-0.5); EOS % 1.4 % (0.0-3.0); HEMATOCRIT 34.7 % (42.0-52.0); HEMOGLOBIN 10.1 g/dl (13.5-17.5); LYMPH % 13.3 % (24.0-44.0); MEAN CORPUSCULAR HGB CONC 29.1 g/dl (32.0-36.5); MEAN CORPUSCULAR VOLUME 92.8 fl (80.0-96.0); MONO # 0.9 10^3/uL (0.0-0.8); MONO % 11.7 % (2.0-8.0); NEUTROPHILS # 5.3 10^3/uL (1.5-8.5); NEUTROPHILS % 72.3 % (36.0-66.0); PLATELET COUNT, AUTOMATED 234 10^3/uL (150-450); RED BLOOD COUNT 3.74 10^6/uL (4.30-6.10); WHITE BLOOD COUNT 7.4 10^3/uL (4.0-10.0)
[2022-08-18 11:03] LABS: RSV AMPLIFICATION NEGATIVE (NEGATIVE)
[2022-08-18 11:06] LABS: ALBUMIN 2.9 GM/DL (3.2-5.2); BILIRUBIN,DIRECT 0.6 MG/DL (0.0-0.2); CREATININE FOR GFR 2.35 MG/DL (0.70-1.30); GLOMERULAR FILTRATION RATE 28.4 (>35); POTASSIUM SERUM 4.7 MEQ/L (3.5-5.1); THYROID STIMULATING HORMONE 0.122 uIU/ML (0.358-3.740); TOTAL PROTEIN 7.8 GM/DL (6.4-8.2)
[2022-08-18] MEDS ORDERED: HOME MED LIST COMPLETE! XX SCH (12:30)
[2022-08-18 12:53] LABS: MAGNESIUM LEVEL 2.7 MG/DL (1.8-2.4)
[2022-08-18] MEDS ORDERED: FUROSEMIDE 100MG/10ML VIAL (J1940) IV ONE (16:45)
[2022-08-18 20:05] LABS: INR 1.45; PROTHROMBIN TIME 17.9 SECONDS (12.5-14.5)
[2022-08-18 20:06] LABS: PARTIAL THROMBOPLASTIN TIME 33.9 SECONDS (24.8-34.2)
[2022-08-18 20:40] VITALS: BP 126/82
[2022-08-18] MEDS: DOCUSATE SODIUM 100MG CAPSULE PO SCH (21:00)
[2022-08-18] MEDS: AMIODARONE 200 MG TAB (PACERONE) PO SCH (21:20)
[2022-08-18] MEDS: APIXABAN 2.5 MG TAB (ELIQUIS) PO SCH (21:20)
[2022-08-18] MEDS: PRAVASTATIN 20 MG TAB PO SCH (21:20)
[2022-08-18] MEDS: COSOPT OCUMETER PLUS 10ML (DORZOLAMIDE/TIMOLOL) OU SCH (21:59)
[2022-08-18] MEDS: FUROSEMIDE 100MG/10ML VIAL (J1940) IV SCH (23:07)
[2022-08-19] VITALS (9 sets, daily range): BP systolic 92–110; BP diastolic 52–67
[2022-08-19] MEDS ORDERED: NYSTATIN 100,000 UNITS/GM TOPICAL PWD 15 GM TOP PRN (02:00)
[2022-08-19] MEDS: FUROSEMIDE 100MG/10ML VIAL (J1940) IV SCH (05:00)
[2022-08-19 05:56] LABS: BASO # 0.1 10^3/uL (0.0-0.2); BASO % 0.8 % (0.0-1.0); EOS # 0.1 10^3/uL (0.0-0.5); EOS % 1.5 % (0.0-3.0); HEMOGLOBIN 9.4 g/dl (13.5-17.5); LYMPH # 1.3 10^3/uL (1.5-5.0); LYMPH % 20.8 % (24.0-44.0); MEAN CORPUSCULAR HEMOGLOBIN 26.9 pg (27.0-33.0); MEAN CORPUSCULAR HGB CONC 29.4 g/dl (32.0-36.5); MEAN CORPUSCULAR VOLUME 91.4 fl (80.0-96.0); MONO # 0.8 10^3/uL (0.0-0.8); NEUTROPHILS # 3.9 10^3/uL (1.5-8.5); NEUTROPHILS % 63.6 % (36.0-66.0); PLATELET COUNT, AUTOMATED 206 10^3/uL (150-450); WHITE BLOOD COUNT 6.1 10^3/uL (4.0-10.0)
[2022-08-19 06:37] LABS: CALCIUM LEVEL 8.8 MG/DL (8.8-10.2); CREATININE FOR GFR 2.15 MG/DL (0.70-1.30); GLOMERULAR FILTRATION RATE 31.5 (>35); MAGNESIUM LEVEL 2.6 MG/DL (1.8-2.4); POTASSIUM SERUM 3.8 MEQ/L (3.5-5.1)
[2022-08-19] MEDS ORDERED: ACETAMINOPHEN TAB 650MG DOSE (2X325MG) PO PRN (07:15)
[2022-08-19] MEDS ORDERED: PERCOCET 5MG/325MG TAB PO PRN (07:15)
[2022-08-19] MEDS: APIXABAN 2.5 MG TAB (ELIQUIS) PO SCH ×2 (08:40→20:38)
[2022-08-19] MEDS: DOCUSATE SODIUM 100MG CAPSULE PO SCH ×2 (08:41→20:38)
[2022-08-19] MEDS: COSOPT OCUMETER PLUS 10ML (DORZOLAMIDE/TIMOLOL) OU SCH ×2 (08:41→20:40)
[2022-08-19] MEDS: SERTRALINE HCL 25 MG TABLET PO SCH (08:41)
[2022-08-19] MEDS ORDERED: SPIRONOLACTONE 12.5MG PER 1/2 TABLET PO SCH (09:00)
[2022-08-19] MEDS: FUROSEMIDE injection 250 MG in D5W 225 ML IV SCH (10:14)
[2022-08-19 20:05] LABS: CALCIUM LEVEL 8.7 MG/DL (8.8-10.2); CREATININE FOR GFR 2.15 MG/DL (0.70-1.30); GLOMERULAR FILTRATION RATE 31.5 (>35); MAGNESIUM LEVEL 2.8 MG/DL (1.8-2.4); POTASSIUM SERUM 4.4 MEQ/L (3.5-5.1)
[2022-08-19] MEDS: AMIODARONE 200 MG TAB (PACERONE) PO SCH (20:38)
[2022-08-19] MEDS: PRAVASTATIN 20 MG TAB PO SCH (20:38)
[2022-08-20] VITALS (17 sets, daily range): BP systolic 85–136; BP diastolic 54–75
[2022-08-20 05:39] LABS: BASO # 0.1 10^3/uL (0.0-0.2); BASO % 0.7 % (0.0-1.0); EOS # 0.1 10^3/uL (0.0-0.5); EOS % 1.9 % (0.0-3.0); HEMATOCRIT 31.7 % (42.0-52.0); HEMOGLOBIN 9.3 g/dl (13.5-17.5); LYMPH # 1.3 10^3/uL (1.5-5.0); LYMPH % 18.7 % (24.0-44.0); MEAN CORPUSCULAR HEMOGLOBIN 26.9 pg (27.0-33.0); MEAN CORPUSCULAR HGB CONC 29.3 g/dl (32.0-36.5); MEAN CORPUSCULAR VOLUME 91.6 fl (80.0-96.0); MONO # 0.8 10^3/uL (0.0-0.8); MONO % 11.4 % (2.0-8.0); NEUTROPHILS # 4.6 10^3/uL (1.5-8.5); NEUTROPHILS % 67.2 % (36.0-66.0); PLATELET COUNT, AUTOMATED 207 10^3/uL (150-450); RED BLOOD COUNT 3.46 10^6/uL (4.30-6.10); WHITE BLOOD COUNT 6.9 10^3/uL (4.0-10.0)
[2022-08-20 06:10] LABS: CALCIUM LEVEL 8.4 MG/DL (8.8-10.2); CREATININE FOR GFR 2.01 MG/DL (0.70-1.30); POTASSIUM SERUM 3.8 MEQ/L (3.5-5.1)
[2022-08-20] MEDS ORDERED: metOLazone 5 MG TAB PO SCH (09:00)
[2022-08-20] MEDS ORDERED: SPIRONOLACTONE 50 MG TAB PO SCH ×2 (09:00→11:25)
[2022-08-20] MEDS: DOCUSATE SODIUM 100MG CAPSULE PO SCH ×2 (09:51→20:03)
[2022-08-20] MEDS: SERTRALINE HCL 25 MG TABLET PO SCH (09:51)
[2022-08-20] MEDS: APIXABAN 2.5 MG TAB (ELIQUIS) PO SCH ×2 (09:51→20:03)
[2022-08-20] MEDS: COSOPT OCUMETER PLUS 10ML (DORZOLAMIDE/TIMOLOL) OU SCH ×2 (09:53→20:03)
[2022-08-20] MEDS: FUROSEMIDE injection 250 MG in D5W 225 ML IV SCH ×4 (10:13→21:55)
[2022-08-20] MEDS: SPIRONOLACTONE 50 MG TAB PO SCH ×2 (11:54→16:59)
[2022-08-20] MEDS: MIDODRINE 2.5 MG TAB PO SCH ×2 (11:55→16:59)
[2022-08-20 12:06] LABS: MAGNESIUM LEVEL 2.6 MG/DL (1.8-2.4)
[2022-08-20] MEDS: PRAVASTATIN 20 MG TAB PO SCH (20:03)
[2022-08-21] VITALS (10 sets, daily range): BP systolic 94–119; BP diastolic 50–64
[2022-08-21 06:14] LABS: BASO % 0.6 % (0.0-1.0); EOS # 0.2 10^3/uL (0.0-0.5); EOS % 2.3 % (0.0-3.0); HEMATOCRIT 32.5 % (42.0-52.0); HEMOGLOBIN 9.6 g/dl (13.5-17.5); LYMPH # 1.3 10^3/uL (1.5-5.0); LYMPH % 19.3 % (24.0-44.0); MEAN CORPUSCULAR HEMOGLOBIN 26.9 pg (27.0-33.0); MEAN CORPUSCULAR HGB CONC 29.5 g/dl (32.0-36.5); MONO # 0.7 10^3/uL (0.0-0.8); MONO % 10.7 % (2.0-8.0); NEUTROPHILS # 4.4 10^3/uL (1.5-8.5); NEUTROPHILS % 66.6 % (36.0-66.0); PLATELET COUNT, AUTOMATED 211 10^3/uL (150-450); RED BLOOD COUNT 3.57 10^6/uL (4.30-6.10); WHITE BLOOD COUNT 6.6 10^3/uL (4.0-10.0)
[2022-08-21 06:43] LABS: CALCIUM LEVEL 8.9 MG/DL (8.8-10.2); CREATININE FOR GFR 1.97 MG/DL (0.70-1.30); GLOMERULAR FILTRATION RATE 34.8 (>35); MAGNESIUM LEVEL 2.5 MG/DL (1.8-2.4); POTASSIUM SERUM 3.4 MEQ/L (3.5-5.1)
[2022-08-21] MEDS: APIXABAN 2.5 MG TAB (ELIQUIS) PO SCH ×2 (08:23→21:06)
[2022-08-21] MEDS: DOCUSATE SODIUM 100MG CAPSULE PO SCH ×2 (08:23→21:00)
[2022-08-21] MEDS: SERTRALINE HCL 25 MG TABLET PO SCH (08:23)
[2022-08-21] MEDS: MIDODRINE 2.5 MG TAB PO SCH ×3 (08:24→16:25)
[2022-08-21] MEDS: COSOPT OCUMETER PLUS 10ML (DORZOLAMIDE/TIMOLOL) OU SCH ×2 (08:24→21:07)
[2022-08-21] MEDS: SPIRONOLACTONE 50 MG TAB PO SCH ×2 (08:24→16:30)
[2022-08-21] MEDS: POTASSIUM CHLORIDE 10MEQ SR TABLET PO SCH (09:44)
[2022-08-21] MEDS: FUROSEMIDE injection 250 MG in D5W 225 ML IV SCH ×2 (09:45→21:17)
[2022-08-21] MEDS ORDERED: POTASSIUM CHLORIDE 10MEQ SR TABLET PO ONE (16:00)
[2022-08-21] MEDS: PRAVASTATIN 20 MG TAB PO SCH (21:06)
[2022-08-22 04:00] VITALS: BP 102/58
[2022-08-22 05:51] LABS: BASO % 0.6 % (0.0-1.0); EOS # 0.1 10^3/uL (0.0-0.5); EOS % 1.8 % (0.0-3.0); HEMATOCRIT 33.2 % (42.0-52.0); HEMOGLOBIN 9.6 g/dl (13.5-17.5); LYMPH # 1.1 10^3/uL (1.5-5.0); LYMPH % 16.8 % (24.0-44.0); MEAN CORPUSCULAR HEMOGLOBIN 26.2 pg (27.0-33.0); MEAN CORPUSCULAR HGB CONC 28.9 g/dl (32.0-36.5); MEAN CORPUSCULAR VOLUME 90.7 fl (80.0-96.0); MONO # 0.9 10^3/uL (0.0-0.8); MONO % 14.1 % (2.0-8.0); NEUTROPHILS # 4.4 10^3/uL (1.5-8.5); NEUTROPHILS % 66.4 % (36.0-66.0); PLATELET COUNT, AUTOMATED 219 10^3/uL (150-450); RED BLOOD COUNT 3.66 10^6/uL (4.30-6.10); WHITE BLOOD COUNT 6.7 10^3/uL (4.0-10.0)
[2022-08-22 06:28] LABS: CREATININE FOR GFR 1.98 MG/DL (0.70-1.30); GLOMERULAR FILTRATION RATE 34.6 (>35); POTASSIUM SERUM 3.8 MEQ/L (3.5-5.1)
[2022-08-22 08:21] VITALS: BP 130/58
[2022-08-22] MEDS: MIDODRINE 2.5 MG TAB PO SCH (08:54)
[2022-08-22] MEDS: DOCUSATE SODIUM 100MG CAPSULE PO SCH ×2 (08:54→20:46)
[2022-08-22] MEDS: SERTRALINE HCL 25 MG TABLET PO SCH (08:54)
[2022-08-22] MEDS: SPIRONOLACTONE 50 MG TAB PO SCH ×2 (08:54→16:44)
[2022-08-22] MEDS: APIXABAN 2.5 MG TAB (ELIQUIS) PO SCH ×2 (08:55→20:47)
[2022-08-22] MEDS: POTASSIUM CHLORIDE 10MEQ SR TABLET PO SCH (08:55)
[2022-08-22] MEDS: COSOPT OCUMETER PLUS 10ML (DORZOLAMIDE/TIMOLOL) OU SCH ×2 (08:55→20:47)
[2022-08-22] MEDS ORDERED: metOLazone 2.5 MG TAB PO ONE (09:25)
[2022-08-22] MEDS: FUROSEMIDE injection 250 MG in D5W 225 ML IV SCH ×2 (10:39→22:34)
[2022-08-22] MEDS ORDERED: POTASSIUM CHLORIDE 10MEQ SR TABLET PO ONE (11:00)
[2022-08-22 12:05] VITALS: BP 101/65
[2022-08-22] MEDS: MIDODRINE 5 MG TAB PO SCH ×2 (12:28→16:44)
[2022-08-22 20:00] VITALS: BP 115/55
[2022-08-22] MEDS: PRAVASTATIN 20 MG TAB PO SCH (20:47)
[2022-08-23] VITALS (10 sets, daily range): BP systolic 92–108; BP diastolic 50–66
[2022-08-23 05:33] LABS: BASO # 0.1 10^3/uL (0.0-0.2); BASO % 0.8 % (0.0-1.0); EOS # 0.2 10^3/uL (0.0-0.5); EOS % 2.2 % (0.0-3.0); HEMATOCRIT 32.9 % (42.0-52.0); HEMOGLOBIN 9.8 g/dl (13.5-17.5); LYMPH # 1.2 10^3/uL (1.5-5.0); LYMPH % 17.4 % (24.0-44.0); MEAN CORPUSCULAR HEMOGLOBIN 26.9 pg (27.0-33.0); MEAN CORPUSCULAR HGB CONC 29.8 g/dl (32.0-36.5); MEAN CORPUSCULAR VOLUME 90.4 fl (80.0-96.0); MONO # 0.9 10^3/uL (0.0-0.8); MONO % 12.9 % (2.0-8.0); NEUTROPHILS # 4.7 10^3/uL (1.5-8.5); NEUTROPHILS % 66.4 % (36.0-66.0); PLATELET COUNT, AUTOMATED 209 10^3/uL (150-450); RED BLOOD COUNT 3.64 10^6/uL (4.30-6.10); WHITE BLOOD COUNT 7.1 10^3/uL (4.0-10.0)
[2022-08-23 06:20] LABS: CALCIUM LEVEL 9.2 MG/DL (8.8-10.2); CREATININE FOR GFR 2.1 MG/DL (0.70-1.30); GLOMERULAR FILTRATION RATE 32.3 (>35); PERCENT SATURATION 12.8 % (19.7-50.0); POTASSIUM SERUM 3.9 MEQ/L (3.5-5.1)
[2022-08-23] MEDS: MIDODRINE 5 MG TAB PO SCH ×3 (08:28→16:52)
[2022-08-23] MEDS: POTASSIUM CHLORIDE 10MEQ SR TABLET PO SCH ×2 (08:28→21:19)
[2022-08-23] MEDS: APIXABAN 2.5 MG TAB (ELIQUIS) PO SCH ×2 (08:30→21:19)
[2022-08-23] MEDS: COSOPT OCUMETER PLUS 10ML (DORZOLAMIDE/TIMOLOL) OU SCH ×2 (08:30→21:20)
[2022-08-23] MEDS: DOCUSATE SODIUM 100MG CAPSULE PO SCH ×3 (08:30→21:19)
[2022-08-23] MEDS: SERTRALINE HCL 25 MG TABLET PO SCH (08:30)
[2022-08-23] MEDS: SPIRONOLACTONE 50 MG TAB PO SCH ×2 (08:35→16:53)
[2022-08-23] MEDS: FUROSEMIDE injection 250 MG in D5W 225 ML IV SCH ×2 (10:00→21:52)
[2022-08-23] MEDS ORDERED: POTASSIUM CHLORIDE 10MEQ SR TABLET PO ONE (11:00)
[2022-08-23] MEDS ORDERED: FERRIC CARBOXYMALTOSE INJ 750 MG, VIAL MATE ADAPTER 1 EACH in NS 250 ML IV ONE (12:00)
[2022-08-23] MEDS: PRAVASTATIN 20 MG TAB PO SCH (21:19)
[2022-08-24 04:00] VITALS: BP 105/55
[2022-08-24 06:18] LABS: BASO # 0.1 10^3/uL (0.0-0.2); BASO % 0.7 % (0.0-1.0); EOS # 0.2 10^3/uL (0.0-0.5); EOS % 2.1 % (0.0-3.0); HEMATOCRIT 33.3 % (42.0-52.0); LYMPH # 1.5 10^3/uL (1.5-5.0); LYMPH % 21.2 % (24.0-44.0); MEAN CORPUSCULAR HEMOGLOBIN 26.9 pg (27.0-33.0); MEAN CORPUSCULAR VOLUME 89.5 fl (80.0-96.0); MONO % 14.1 % (2.0-8.0); NEUTROPHILS # 4.3 10^3/uL (1.5-8.5); NEUTROPHILS % 61.6 % (36.0-66.0); PLATELET COUNT, AUTOMATED 244 10^3/uL (150-450); RED BLOOD COUNT 3.72 10^6/uL (4.30-6.10)
[2022-08-24 07:03] LABS: CALCIUM LEVEL 9.4 MG/DL (8.8-10.2); CREATININE FOR GFR 2.17 MG/DL (0.70-1.30); GLOMERULAR FILTRATION RATE 31.1 (>35); POTASSIUM SERUM 4.1 MEQ/L (3.5-5.1)
[2022-08-24 08:16] VITALS: BP 106/56
[2022-08-24 08:57] LABS: FOLATE 7.4 NG/ML (>5.4)
[2022-08-24] MEDS: DOCUSATE SODIUM 100MG CAPSULE PO SCH ×2 (09:00→22:00)
[2022-08-24] MEDS: SPIRONOLACTONE 50 MG TAB PO SCH ×2 (09:21→16:55)
[2022-08-24] MEDS: APIXABAN 2.5 MG TAB (ELIQUIS) PO SCH ×2 (09:22→21:50)
[2022-08-24] MEDS: POTASSIUM CHLORIDE 10MEQ SR TABLET PO SCH ×2 (09:22→21:50)
[2022-08-24] MEDS: COSOPT OCUMETER PLUS 10ML (DORZOLAMIDE/TIMOLOL) OU SCH ×2 (09:22→21:51)
[2022-08-24] MEDS: MIDODRINE 5 MG TAB PO SCH ×3 (09:22→16:55)
[2022-08-24] MEDS: SERTRALINE HCL 25 MG TABLET PO SCH (09:22)
[2022-08-24] MEDS: FUROSEMIDE injection 250 MG in D5W 225 ML IV SCH (09:23)
[2022-08-24] MEDS: TORSEMIDE 100 MG TAB PO SCH ×2 (11:40→16:55)
[2022-08-24 15:54] VITALS: BP 92/54
[2022-08-24 19:54] VITALS: BP 114/55
[2022-08-24] MEDS: AMIODARONE 200 MG TAB (PACERONE) PO SCH (21:50)
[2022-08-24] MEDS: PRAVASTATIN 20 MG TAB PO SCH (21:50)
[2022-08-25 04:28] VITALS: BP 110/65
[2022-08-25 06:08] LABS: BASO # 0.1 10^3/uL (0.0-0.2); EOS # 0.1 10^3/uL (0.0-0.5); HEMATOCRIT 35.8 % (42.0-52.0); HEMOGLOBIN 10.4 g/dl (13.5-17.5); LYMPH # 1.4 10^3/uL (1.5-5.0); LYMPH % 19.7 % (24.0-44.0); MEAN CORPUSCULAR HEMOGLOBIN 26.2 pg (27.0-33.0); MEAN CORPUSCULAR HGB CONC 29.1 g/dl (32.0-36.5); MEAN CORPUSCULAR VOLUME 90.2 fl (80.0-96.0); MONO % 14.4 % (2.0-8.0); NEUTROPHILS # 4.5 10^3/uL (1.5-8.5); NEUTROPHILS % 62.5 % (36.0-66.0); PLATELET COUNT, AUTOMATED 266 10^3/uL (150-450); RED BLOOD COUNT 3.97 10^6/uL (4.30-6.10); WHITE BLOOD COUNT 7.2 10^3/uL (4.0-10.0)
[2022-08-25 06:46] LABS: CALCIUM LEVEL 9.1 MG/DL (8.8-10.2); CREATININE FOR GFR 2.41 MG/DL (0.70-1.30); GLOMERULAR FILTRATION RATE 27.6 (>35); POTASSIUM SERUM 4.1 MEQ/L (3.5-5.1)
[2022-08-25 07:44] VITALS: BP 100/57
[2022-08-25] MEDS ORDERED: TORSEMIDE (DEMADEX) 50 MG PER 1/2 TAB PO SCH (09:00)
[2022-08-25] MEDS: SPIRONOLACTONE 50 MG TAB PO SCH (09:40)
[2022-08-25] MEDS: MIDODRINE 5 MG TAB PO SCH ×2 (09:41→11:36)
[2022-08-25] MEDS: APIXABAN 2.5 MG TAB (ELIQUIS) PO SCH (09:41)
[2022-08-25] MEDS: POTASSIUM CHLORIDE 10MEQ SR TABLET PO SCH (09:41)
[2022-08-25] MEDS: SERTRALINE HCL 25 MG TABLET PO SCH (09:42)
[2022-08-25] MEDS: DOCUSATE SODIUM 100MG CAPSULE PO SCH (09:42)
[2022-08-25] MEDS: COSOPT OCUMETER PLUS 10ML (DORZOLAMIDE/TIMOLOL) OU SCH (09:42)
[2022-08-25 12:09] VITALS: BP 106/55
[2022-08-25] MEDS ORDERED: TORS100T PO (12:17)
[2022-08-25] MEDS ORDERED: SPIR50TA4 PO (12:17)
[2022-08-25] MEDS ORDERED: POTA-151 PO (12:18)
[2022-08-25] MEDS ORDERED: MIDO5TA PO (12:18)
[2022-08-25] MEDS ORDERED: METO5TA PO (12:21)
== END 2022-08-25 14:39 | disposition home health service (06) | DRG 291 ==
LOC: M ED 09:36 → M ED INP 16:46 → OBSVTOIN 16:46 → ENRESERV 19:30 → M PCU 20:38
PROVIDERS: ADMIT Internal Medicine Nephrology; ATTEND Internal Medicine
DX: I13.0 Hypertensive heart and chronic kidney disease with heart failure and stage 1 through stage 4 chronic kidney disease, or unspecified chronic kidney disease (principal); I50.33 Acute on chronic diastolic (congestive) heart failure; L89.153 Pressure ulcer of sacral region, stage 3; N17.9 Acute kidney failure, unspecified; Z68.41 Body mass index [BMI] 40.0-44.9, adult; E87.1 Hypo-osmolality and hyponatremia; I27.81 Cor pulmonale (chronic); I27.20 Pulmonary hypertension, unspecified; I25.10 Atherosclerotic heart disease of native coronary artery without angina pectoris; E11.22 Type 2 diabetes mellitus with diabetic chronic kidney disease; N18.30 Chronic kidney disease, stage 3 unspecified; I48.0 Paroxysmal atrial fibrillation; K74.60 Unspecified cirrhosis of liver; E05.90 Thyrotoxicosis, unspecified without thyrotoxic crisis or storm; E66.01 Morbid (severe) obesity due to excess calories; I35.0 Nonrheumatic aortic (valve) stenosis; E87.6 Hypokalemia; F41.9 Anxiety disorder, unspecified; F32.A Depression, unspecified; H40.9 Unspecified glaucoma; I87.2 Venous insufficiency (chronic) (peripheral); Z79.899 Other long term (current) drug therapy; M19.90 Unspecified osteoarthritis, unspecified site; Z96.651 Presence of right artificial knee joint; Z89.421 Acquired absence of other right toe(s); Z89.021 Acquired absence of right finger(s); D64.9 Anemia, unspecified

== ENCOUNTER → 2022-09-14 | Outpatient (REF) | payer MEDICARE ==
[~2022-09-14] MED LIST changes: +METO5TA PO; +MIDO5TA PO; +POTA-151 PO; +SPIR50TA4 PO; +TORS100T PO
== END ==
LOC: M LAB REF 16:53
PROVIDERS: ATTEND Nurse Practitioner Adult Health
DX: E05.90 Thyrotoxicosis, unspecified without thyrotoxic crisis or storm (principal)

== ENCOUNTER 2023-02-25 21:55 | Emergency (ER) | payer MEDICARE ==
[2023-02-25 21:56] VITALS: BP 116/62
[2023-02-25] MEDS ORDERED: BOOSTRIX VACCINE (TETANUS/DIPHTH/ACEL. PERTUSSIS) 0.5ML SYR IM ONE (23:50)
[2023-02-25] MEDS ORDERED: LIDOCAINE W/EPINEPHRINE 1% 20ML VIAL SC ONE (23:50)
[2023-02-27] MEDS ORDERED: MIDO5TA PO (17:00)
[2023-02-27] MEDS ORDERED: TORS100T PO (17:00)
== END 2023-02-26 01:04 | disposition home or self-care (01) ==
LOC: M ED 21:55
DX: S31.501A Unspecified open wound of unspecified external genital organs, male, initial encounter (principal); S30.1XXA Contusion of abdominal wall, initial encounter; W19.XXXA Unspecified fall, initial encounter; Y92.009 Unspecified place in unspecified non-institutional (private) residence as the place of occurrence of the external cause; I50.9 Heart failure, unspecified; E11.9 Type 2 diabetes mellitus without complications; I27.20 Pulmonary hypertension, unspecified; F41.9 Anxiety disorder, unspecified; F32.9 Major depressive disorder, single episode, unspecified; Z86.718 Personal history of other venous thrombosis and embolism; Z79.01 Long term (current) use of anticoagulants; Z79.899 Other long term (current) drug therapy

== ENCOUNTER 2023-02-27 08:56 | Inpatient (IN) | payer MEDICARE ==
[~2023-02-27] VITALS: Ht 182.9 cm; Wt 120.0 kg
[2023-02-27] MEDS ORDERED: LIDOCAINE 2% 5ML JELLY UROJET TOP ONE (09:30)
[2023-02-27 09:49] LABS: BASO % 0.2 % (0.0-1.0); HEMATOCRIT 36.2 % (42.0-52.0); HEMOGLOBIN 11.5 g/dl (13.5-17.5); LYMPH # 0.4 10^3/uL (1.5-5.0); LYMPH % 3.6 % (24.0-44.0); MEAN CORPUSCULAR HEMOGLOBIN 31.6 pg (27.0-33.0); MEAN CORPUSCULAR HGB CONC 31.8 g/dl (32.0-36.5); MEAN CORPUSCULAR VOLUME 99.5 fl (80.0-96.0); MONO # 0.9 10^3/uL (0.0-0.8); MONO % 9.3 % (2.0-8.0); NEUTROPHILS # 8.4 10^3/uL (1.5-8.5); NEUTROPHILS % 86.5 % (36.0-66.0); PLATELET COUNT, AUTOMATED 177 10^3/uL (150-450); RED BLOOD COUNT 3.64 10^6/uL (4.30-6.10); WHITE BLOOD COUNT 9.7 10^3/uL (4.0-10.0)
[2023-02-27 09:59] LABS: INR 1.54; PROTHROMBIN TIME 18.8 SECONDS (12.5-14.5)
[2023-02-27 10:00] LABS: PARTIAL THROMBOPLASTIN TIME 39.8 SECONDS (24.8-34.2)
[2023-02-27] MEDS ORDERED: NS 1,000 ML IV ONE (10:00)
[2023-02-27 10:18] LABS: LIPASE 18 U/L (12-53)
[2023-02-27 10:19] LABS: AMYLASE 45 U/L (30-118); CPK CREATINE PHOSPHOKINASE 68 U/L (46-171)
[2023-02-27 10:20] LABS: ALBUMIN 3.5 G/DL (3.2-5.2); ALKALINE PHOSPHATASE 112 U/L (46-116); ALT/SGPT 14 U/L (7.0-40); AST/SGOT 22 U/L (<34); BILIRUBIN,DIRECT 0.7 MG/DL (<0.4); BILIRUBIN,TOTAL 1.3 MG/DL (0.3-1.2); BLOOD UREA NITROGEN 75 MG/DL (9-23); CALCIUM LEVEL 9.4 MG/DL (8.3-10.6); CARBON DIOXIDE LEVEL 33 MMOL/L (20-31); CHLORIDE LEVEL 96 MMOL/L (98-107); CREATININE FOR GFR 2.66 MG/DL (0.70-1.30); GLOMERULAR FILTRATION RATE 24.6 (>35); GLUCOSE, FASTING 113 MG/DL (74-106); POTASSIUM SERUM 4.5 MMOL/L (3.5-5.1); RSV AMPLIFICATION NEGATIVE (NEGATIVE); SODIUM LEVEL 135 MMOL/L (136-145); TOTAL PROTEIN 7.4 G/DL (5.7-8.2)
[2023-02-27 10:23] LABS: CK-MB VALUE MASS < 1.0 NG/ML (<3.6); MB/CK RELATIVE INDEX 1.47 (< OR =4)
[2023-02-27] MEDS ORDERED: cefTRIAXone SOD 1 GM in D5W MINI-BAG PLUS 50 ML IV ONE (10:40)
[2023-02-27] MEDS ORDERED: D5W/0.45% SODIUM CHLORIDE 1,000 ML IV ONE (14:35)
[2023-02-27] MEDS ORDERED: ISOVUE-300 61% 100ML VIAL As Ordered ONE (15:32)
[2023-02-27] MEDS ORDERED: LIDOCAINE 2% 100MG/5ML SDV (FOR ANES.) As Ordered ONE (16:12)
[2023-02-27] MEDS ORDERED: fentaNYL 100 MCG/2 ML INJECTION As Ordered ONE (16:12)
[2023-02-27] MEDS ORDERED: propofoL 200 MG/20 ML VIAL As Ordered ONE (16:12)
[2023-02-27] MEDS ORDERED: MIDAZOLAM INJ 2MG/2ML VIAL As Ordered ONE (16:13)
[2023-02-27] MEDS ORDERED: LIDOCAINE 2% 5ML JELLY UROJET As Ordered ONE (16:38)
[2023-02-27] MEDS ORDERED: TORS100T PO (17:00)
[2023-02-27] MEDS ORDERED: HOME MED LIST COMPLETE! XX SCH (17:00)
[2023-02-27] MEDS ORDERED: MIDO5TA PO (17:00)
[2023-02-27] MEDS ORDERED: ceFAZolin 2 GM/D5W 50 ML IV BAG IV ONE (17:09)
[2023-02-27] MEDS ORDERED: ONDANSETRON 4MG 2ML VIAL IV PRN (17:20)
[2023-02-27] MEDS ORDERED: MORPHINE 2 MG/ML 1ML VIAL IV PRN (17:20)
[2023-02-27] MEDS ORDERED: fentaNYL 100 MCG/2 ML INJECTION IV PRN (17:20)
[2023-02-27] MEDS ORDERED: oxyCODONE 5MG TAB PO PRN (17:20)
[2023-02-27 17:49] VITALS: BP 131/62
[2023-02-27] MEDS: PIPERACILLIN/TAZOBACTAM SOD 2.25 GM in D5W MINI-BAG PLUS 50 ML IV SCH (18:05)
[2023-02-27 18:19] VITALS: BP 130/69
[2023-02-27 19:19] VITALS: BP 110/51
[2023-02-27 20:19] VITALS: BP 133/59
[2023-02-27 21:19] VITALS: BP 142/62
[2023-02-27] MEDS: PRAVASTATIN 20 MG TAB PO SCH (21:19)
[2023-02-27] MEDS: BISACODYL 10MG SUPP PR SCH (21:19)
[2023-02-27] MEDS: DOCUSATE SODIUM 100MG CAPSULE PO SCH (21:19)
[2023-02-27 22:10] VITALS: BP 126/59
[2023-02-27] MEDS: ACETAMINOPHEN TAB 650MG DOSE (2X325MG) PO PRN (22:31)
[2023-02-27] MEDS ORDERED: BACITRACIN OINTMENT 30GM TUBE TOP ONE (23:20)
[2023-02-28] MEDS ORDERED: ACETAMINOPHEN 325 MG TAB PO ONE (00:50)
[2023-02-28] MEDS: PIPERACILLIN/TAZOBACTAM SOD 2.25 GM in D5W MINI-BAG PLUS 50 ML IV SCH ×5 (01:02→23:47)
[2023-02-28 02:19] VITALS: BP 135/60
[2023-02-28 06:19] VITALS: BP 132/68
[2023-02-28 06:40] LABS: HEMATOCRIT 31.8 % (42.0-52.0); MEAN CORPUSCULAR HEMOGLOBIN 31.2 pg (27.0-33.0); MEAN CORPUSCULAR HGB CONC 31.4 g/dl (32.0-36.5); MEAN CORPUSCULAR VOLUME 99.1 fl (80.0-96.0); PLATELET COUNT, AUTOMATED 147 10^3/uL (150-450); RED BLOOD COUNT 3.21 10^6/uL (4.30-6.10); WHITE BLOOD COUNT 9.8 10^3/uL (4.0-10.0)
[2023-02-28 06:56] LABS: CALCIUM LEVEL 8.4 MG/DL (8.3-10.6); CREATININE FOR GFR 2.07 MG/DL (0.70-1.30); GLOMERULAR FILTRATION RATE 32.8 (>35); POTASSIUM SERUM 3.6 MMOL/L (3.5-5.1)
[2023-02-28 07:50] VITALS: BP 135/31
[2023-02-28] MEDS: MIRALAX *UNIT DOSE* 17GM PACKET PO SCH (09:14)
[2023-02-28] MEDS: SERTRALINE HCL 25 MG TABLET PO SCH (09:14)
[2023-02-28] MEDS: DOCUSATE SODIUM 100MG CAPSULE PO SCH ×2 (09:14→21:27)
[2023-02-28] MEDS: BISACODYL 10MG SUPP PR SCH ×2 (09:14→21:00)
[2023-02-28] MEDS: NYSTATIN 100,000 UNITS/GM TOPICAL PWD 15GM TOP SCH ×2 (09:15→21:26)
[2023-02-28 10:44] LABS: MAGNESIUM LEVEL 2.2 MG/DL (1.8-2.4)
[2023-02-28] MEDS ORDERED: POTASSIUM CHLORIDE 10MEQ SR TABLET PO ONE (11:00)
[2023-02-28 11:46] VITALS: BP 100/52
[2023-02-28] MEDS: MOM 30ML SUSPENSION UDC PO SCH ×2 (12:13→21:00)
[2023-02-28] MEDS: ACETAMINOPHEN TAB 650MG DOSE (2X325MG) PO PRN (12:13)
[2023-02-28] MEDS: SENNA 8.6 MG TAB (SENOKOT) PO SCH ×2 (12:14→21:27)
[2023-02-28] MEDS: APIXABAN 2.5 MG TAB (ELIQUIS) PO SCH ×2 (12:14→21:27)
[2023-02-28 16:00] VITALS: BP 136/69
[2023-02-28] MEDS: BACITRACIN OINTMENT 30GM TUBE TOP SCH (17:13)
[2023-02-28 20:59] VITALS: BP 117/58
[2023-02-28] MEDS: PRAVASTATIN 20 MG TAB PO SCH (21:27)
[2023-03-01] VITALS (8 sets, daily range): BP systolic 84–118; BP diastolic 48–57
[2023-03-01] MEDS: PIPERACILLIN/TAZOBACTAM SOD 2.25 GM in D5W MINI-BAG PLUS 50 ML IV SCH (05:23)
[2023-03-01 06:51] LABS: BASO % 0.1 % (0.0-1.0); EOS % 0.1 % (0.0-3.0); HEMATOCRIT 31.1 % (42.0-52.0); HEMOGLOBIN 9.9 g/dl (13.5-17.5); LYMPH # 0.5 10^3/uL (1.5-5.0); LYMPH % 6.7 % (24.0-44.0); MEAN CORPUSCULAR HEMOGLOBIN 31.5 pg (27.0-33.0); MEAN CORPUSCULAR HGB CONC 31.8 g/dl (32.0-36.5); MONO # 0.9 10^3/uL (0.0-0.8); NEUTROPHILS # 6.4 10^3/uL (1.5-8.5); NEUTROPHILS % 81.6 % (36.0-66.0); PLATELET COUNT, AUTOMATED 147 10^3/uL (150-450); RED BLOOD COUNT 3.14 10^6/uL (4.30-6.10); WHITE BLOOD COUNT 7.9 10^3/uL (4.0-10.0)
[2023-03-01 07:24] LABS: CALCIUM LEVEL 8.3 MG/DL (8.3-10.6); CREATININE FOR GFR 1.99 MG/DL (0.70-1.30); GLOMERULAR FILTRATION RATE 34.3 (>35); POTASSIUM SERUM 3.6 MMOL/L (3.5-5.1)
[2023-03-01] MEDS: MOM 30ML SUSPENSION UDC PO SCH (08:49)
[2023-03-01] MEDS: MIRALAX *UNIT DOSE* 17GM PACKET PO SCH (08:49)
[2023-03-01] MEDS: BISACODYL 10MG SUPP PR SCH (08:50)
[2023-03-01] MEDS: APIXABAN 2.5 MG TAB (ELIQUIS) PO SCH ×2 (08:57→20:37)
[2023-03-01] MEDS: DOCUSATE SODIUM 100MG CAPSULE PO SCH ×2 (08:57→20:37)
[2023-03-01] MEDS: SENNA 8.6 MG TAB (SENOKOT) PO SCH ×2 (08:57→20:37)
[2023-03-01] MEDS: SERTRALINE HCL 25 MG TABLET PO SCH (08:57)
[2023-03-01] MEDS: BACITRACIN OINTMENT 30GM TUBE TOP SCH (08:58)
[2023-03-01] MEDS: NYSTATIN 100,000 UNITS/GM TOPICAL PWD 15GM TOP SCH ×2 (08:58→20:38)
[2023-03-01] MEDS ORDERED: NS 500 ML IV ONE (09:40)
[2023-03-01] MEDS: MIDODRINE 5 MG TAB PO SCH ×3 (09:55→16:39)
[2023-03-01 10:52] LABS: MAGNESIUM LEVEL 2.2 MG/DL (1.8-2.4)
[2023-03-01] MEDS ORDERED: BISACODYL 10MG SUPP PR PRN (11:50)
[2023-03-01] MEDS: cefTRIAXone SOD 2 GM in D5W MINI-BAG PLUS 50 ML IV SCH (12:03)
[2023-03-01] MEDS ORDERED: POTASSIUM CHLORIDE 10MEQ SR TABLET PO ONE (15:10)
[2023-03-01] MEDS: TORSEMIDE (DEMADEX) 50 MG PER 1/2 TAB PO SCH (16:38)
[2023-03-01] MEDS: PRAVASTATIN 20 MG TAB PO SCH (20:37)
[2023-03-02] VITALS (10 sets, daily range): BP systolic 88–122; BP diastolic 38–58
[2023-03-02] MEDS: ACETAMINOPHEN TAB 650MG DOSE (2X325MG) PO PRN (00:29)
[2023-03-02 06:16] LABS: BASO % 0.4 % (0.0-1.0); EOS # 0.1 10^3/uL (0.0-0.5); EOS % 1.3 % (0.0-3.0); HEMATOCRIT 30.6 % (42.0-52.0); HEMOGLOBIN 9.6 g/dl (13.5-17.5); LYMPH # 0.9 10^3/uL (1.5-5.0); LYMPH % 12.1 % (24.0-44.0); MEAN CORPUSCULAR HEMOGLOBIN 31.1 pg (27.0-33.0); MEAN CORPUSCULAR HGB CONC 31.4 g/dl (32.0-36.5); MONO # 1.1 10^3/uL (0.0-0.8); MONO % 15.1 % (2.0-8.0); NEUTROPHILS # 5.3 10^3/uL (1.5-8.5); NEUTROPHILS % 70.7 % (36.0-66.0); PLATELET COUNT, AUTOMATED 165 10^3/uL (150-450); RED BLOOD COUNT 3.09 10^6/uL (4.30-6.10); WHITE BLOOD COUNT 7.5 10^3/uL (4.0-10.0)
[2023-03-02 06:38] LABS: CREATININE FOR GFR 1.86 MG/DL (0.70-1.30); GLOMERULAR FILTRATION RATE 37.1 (>35); POTASSIUM SERUM 3.5 MMOL/L (3.5-5.1)
[2023-03-02] MEDS: NS 1,000 ML IV SCH ×2 (08:13→18:42)
[2023-03-02] MEDS: TORSEMIDE (DEMADEX) 50 MG PER 1/2 TAB PO SCH (08:45)
[2023-03-02] MEDS: SENNA 8.6 MG TAB (SENOKOT) PO SCH ×2 (08:45→20:19)
[2023-03-02] MEDS: DOCUSATE SODIUM 100MG CAPSULE PO SCH ×2 (08:45→20:18)
[2023-03-02] MEDS: APIXABAN 2.5 MG TAB (ELIQUIS) PO SCH ×2 (08:45→22:05)
[2023-03-02] MEDS: SERTRALINE HCL 25 MG TABLET PO SCH (08:45)
[2023-03-02] MEDS: MIDODRINE 5 MG TAB PO SCH ×3 (08:45→15:43)
[2023-03-02] MEDS: NYSTATIN 100,000 UNITS/GM TOPICAL PWD 15GM TOP SCH ×2 (08:46→21:00)
[2023-03-02] MEDS: BACITRACIN OINTMENT 30GM TUBE TOP SCH (08:46)
[2023-03-02] MEDS: MIRALAX *UNIT DOSE* 17GM PACKET PO SCH (08:46)
[2023-03-02] MEDS ORDERED: POTASSIUM CHLORIDE 10MEQ SR TABLET PO ONE ×2 (10:00)
[2023-03-02] MEDS: cefTRIAXone SOD 2 GM in D5W MINI-BAG PLUS 50 ML IV SCH (12:26)
[2023-03-02] MEDS: TAMSULOSIN 0.4 MG CAP PO SCH (15:43)
[2023-03-02] MEDS: PERCOCET 5MG/325MG TAB PO PRN (22:05)
[2023-03-02] MEDS: PRAVASTATIN 20 MG TAB PO SCH (22:05)
[2023-03-02] MEDS ORDERED: METOPROLOL TART 12.5 MG PER 1/2 TAB PO ONE (23:00)
[2023-03-02 23:37] LABS: MAGNESIUM LEVEL 1.9 MG/DL (1.8-2.4); POTASSIUM SERUM 3.4 MMOL/L (3.5-5.1)
[2023-03-03 06:00] VITALS: BP 99/58
[2023-03-03 06:13] LABS: BASO % 0.3 % (0.0-1.0); EOS # 0.1 10^3/uL (0.0-0.5); HEMATOCRIT 31.4 % (42.0-52.0); HEMOGLOBIN 9.8 g/dl (13.5-17.5); LYMPH # 0.9 10^3/uL (1.5-5.0); LYMPH % 13.7 % (24.0-44.0); MEAN CORPUSCULAR HEMOGLOBIN 30.9 pg (27.0-33.0); MEAN CORPUSCULAR HGB CONC 31.2 g/dl (32.0-36.5); MEAN CORPUSCULAR VOLUME 99.1 fl (80.0-96.0); MONO # 0.9 10^3/uL (0.0-0.8); MONO % 13.7 % (2.0-8.0); NEUTROPHILS # 4.8 10^3/uL (1.5-8.5); NEUTROPHILS % 69.6 % (36.0-66.0); PLATELET COUNT, AUTOMATED 170 10^3/uL (150-450); RED BLOOD COUNT 3.17 10^6/uL (4.30-6.10); WHITE BLOOD COUNT 6.9 10^3/uL (4.0-10.0)
[2023-03-03 06:40] LABS: CALCIUM LEVEL 7.7 MG/DL (8.3-10.6); CREATININE FOR GFR 1.69 MG/DL (0.70-1.30); GLOMERULAR FILTRATION RATE 41.5 (>35); POTASSIUM SERUM 3.5 MMOL/L (3.5-5.1)
[2023-03-03] MEDS: NS 1,000 ML IV SCH (06:48)
[2023-03-03] MEDS: DOCUSATE SODIUM 100MG CAPSULE PO SCH ×2 (09:00→21:00)
[2023-03-03] MEDS: MIRALAX *UNIT DOSE* 17GM PACKET PO SCH (09:00)
[2023-03-03] MEDS: SENNA 8.6 MG TAB (SENOKOT) PO SCH ×2 (09:00→21:00)
[2023-03-03] MEDS: TAMSULOSIN 0.4 MG CAP PO SCH (09:37)
[2023-03-03] MEDS: SERTRALINE HCL 25 MG TABLET PO SCH (09:37)
[2023-03-03] MEDS: APIXABAN 2.5 MG TAB (ELIQUIS) PO SCH ×2 (09:37→20:15)
[2023-03-03] MEDS: MIDODRINE 5 MG TAB PO SCH ×3 (09:38→17:02)
[2023-03-03] MEDS: BACITRACIN OINTMENT 30GM TUBE TOP SCH (09:38)
[2023-03-03] MEDS: NYSTATIN 100,000 UNITS/GM TOPICAL PWD 15GM TOP SCH ×2 (09:38→20:16)
[2023-03-03] MEDS: PERCOCET 5MG/325MG TAB PO PRN (10:05)
[2023-03-03] MEDS: cefTRIAXone SOD 2 GM in D5W MINI-BAG PLUS 50 ML IV SCH (13:08)
[2023-03-03 14:00] VITALS: BP 113/55
[2023-03-03 19:56] VITALS: BP 119/56
[2023-03-03] MEDS: PRAVASTATIN 20 MG TAB PO SCH (20:15)
[2023-03-04 05:45] VITALS: BP 107/57
[2023-03-04 06:22] LABS: HEMATOCRIT 30.5 % (42.0-52.0); HEMOGLOBIN 9.6 g/dl (13.5-17.5); MEAN CORPUSCULAR HEMOGLOBIN 31.4 pg (27.0-33.0); MEAN CORPUSCULAR HGB CONC 31.5 g/dl (32.0-36.5); MEAN CORPUSCULAR VOLUME 99.7 fl (80.0-96.0); PLATELET COUNT, AUTOMATED 181 10^3/uL (150-450); RED BLOOD COUNT 3.06 10^6/uL (4.30-6.10); WHITE BLOOD COUNT 7.9 10^3/uL (4.0-10.0)
[2023-03-04 06:53] LABS: BILIRUBIN,TOTAL 0.4 MG/DL (0.3-1.2); CALCIUM LEVEL 7.8 MG/DL (8.3-10.6); CREATININE FOR GFR 1.48 MG/DL (0.70-1.30); GLOMERULAR FILTRATION RATE 48.3 (>35); MAGNESIUM LEVEL 1.9 MG/DL (1.8-2.4); POTASSIUM SERUM 3.8 MMOL/L (3.5-5.1); TOTAL PROTEIN 5.4 G/DL (5.7-8.2)
[2023-03-04] MEDS: SERTRALINE HCL 25 MG TABLET PO SCH (08:32)
[2023-03-04] MEDS: SENNA 8.6 MG TAB (SENOKOT) PO SCH ×2 (08:32→20:05)
[2023-03-04] MEDS: TAMSULOSIN 0.4 MG CAP PO SCH (08:32)
[2023-03-04] MEDS: APIXABAN 2.5 MG TAB (ELIQUIS) PO SCH ×2 (08:32→20:05)
[2023-03-04] MEDS: DOCUSATE SODIUM 100MG CAPSULE PO SCH ×2 (08:32→20:05)
[2023-03-04] MEDS: MIDODRINE 5 MG TAB PO SCH ×3 (08:32→15:58)
[2023-03-04] MEDS: MIRALAX *UNIT DOSE* 17GM PACKET PO SCH (08:33)
[2023-03-04] MEDS: NYSTATIN 100,000 UNITS/GM TOPICAL PWD 15GM TOP SCH ×2 (08:33→20:05)
[2023-03-04] MEDS ORDERED: CEFUROXIME 500 MG TAB PO SCH (09:00)
[2023-03-04] MEDS: CEPHALEXIN 500 MG CAP PO SCH ×3 (12:56→20:04)
[2023-03-04] MEDS: PERCOCET 5MG/325MG TAB PO PRN ×2 (13:02→23:26)
[2023-03-04 14:00] VITALS: BP 107/56
[2023-03-04] MEDS: BACITRACIN OINTMENT 30GM TUBE TOP SCH (15:57)
[2023-03-04] MEDS: PRAVASTATIN 20 MG TAB PO SCH (20:05)
[2023-03-05 05:33] VITALS: BP 99/52
[2023-03-05 05:42] VITALS: BP 104/58
[2023-03-05 06:34] LABS: HEMATOCRIT 30.8 % (42.0-52.0); HEMOGLOBIN 9.7 g/dl (13.5-17.5); MEAN CORPUSCULAR HEMOGLOBIN 31.2 pg (27.0-33.0); MEAN CORPUSCULAR HGB CONC 31.5 g/dl (32.0-36.5); PLATELET COUNT, AUTOMATED 194 10^3/uL (150-450); RED BLOOD COUNT 3.11 10^6/uL (4.30-6.10); WHITE BLOOD COUNT 8.2 10^3/uL (4.0-10.0)
[2023-03-05 07:06] LABS: BILIRUBIN,TOTAL 0.5 MG/DL (0.3-1.2); CALCIUM LEVEL 7.7 MG/DL (8.3-10.6); CREATININE FOR GFR 1.36 MG/DL (0.70-1.30); GLOMERULAR FILTRATION RATE 53.3 (>35); POTASSIUM SERUM 4.1 MMOL/L (3.5-5.1); TOTAL PROTEIN 5.4 G/DL (5.7-8.2)
[2023-03-05] MEDS: APIXABAN 2.5 MG TAB (ELIQUIS) PO SCH (08:47)
[2023-03-05] MEDS: SERTRALINE HCL 25 MG TABLET PO SCH (08:47)
[2023-03-05] MEDS: TAMSULOSIN 0.4 MG CAP PO SCH (08:47)
[2023-03-05] MEDS: DOCUSATE SODIUM 100MG CAPSULE PO SCH (08:47)
[2023-03-05] MEDS: CEPHALEXIN 500 MG CAP PO SCH ×2 (08:47→12:25)
[2023-03-05] MEDS: MIRALAX *UNIT DOSE* 17GM PACKET PO SCH (08:47)
[2023-03-05] MEDS: MIDODRINE 5 MG TAB PO SCH ×2 (08:47→12:25)
[2023-03-05] MEDS: NYSTATIN 100,000 UNITS/GM TOPICAL PWD 15GM TOP SCH (08:48)
[2023-03-05] MEDS: BACITRACIN OINTMENT 30GM TUBE TOP SCH (08:48)
[2023-03-05] MEDS: SENNA 8.6 MG TAB (SENOKOT) PO SCH (08:48)
[2023-03-05] MEDS ORDERED: MIRA1POW3 PO (12:13)
[2023-03-05] MEDS ORDERED: CEPH500C PO (12:13)
[2023-03-05] MEDS ORDERED: SENN18TA PO (12:13)
[2023-03-05] MEDS ORDERED: ACID1TAB PO (12:13)
[2023-03-05] MEDS ORDERED: COLA100C5 PO (12:13)
[2023-03-05] MEDS ORDERED: FLOM0.4C39 PO (12:13)
[2023-03-05] MEDS: PERCOCET 5MG/325MG TAB PO PRN (12:27)
== END 2023-03-05 13:39 | disposition home health service (06) | DRG 660 ==
LOC: M ED 08:56 → M ED INP 16:07 → M PCU 17:52 → M MSPAV 03-02 17:40
PROVIDERS: ADMIT Internal Medicine; ATTEND Internal Medicine
PROC: 0T778DZ Dilation of Left Ureter with Intraluminal Device, Via Natural or Artificial Opening Endoscopic (ICD-10-PCS; principal; 2023-02-27 15:22)
DX: N13.0 Hydronephrosis with ureteropelvic junction obstruction (principal); L97.919 Non-pressure chronic ulcer of unspecified part of right lower leg with unspecified severity; L97.929 Non-pressure chronic ulcer of unspecified part of left lower leg with unspecified severity; N39.0 Urinary tract infection, site not specified; N17.9 Acute kidney failure, unspecified; Y92.009 Unspecified place in unspecified non-institutional (private) residence as the place of occurrence of the external cause; K56.41 Fecal impaction; I50.9 Heart failure, unspecified; I35.0 Nonrheumatic aortic (valve) stenosis; I95.1 Orthostatic hypotension; N18.30 Chronic kidney disease, stage 3 unspecified; I49.3 Ventricular premature depolarization; R32 Unspecified urinary incontinence; I48.91 Unspecified atrial fibrillation; L89.90 Pressure ulcer of unspecified site, unspecified stage; M17.0 Bilateral primary osteoarthritis of knee; E11.622 Type 2 diabetes mellitus with other skin ulcer; F32.A Depression, unspecified; E11.22 Type 2 diabetes mellitus with diabetic chronic kidney disease; E78.5 Hyperlipidemia, unspecified; I27.20 Pulmonary hypertension, unspecified; Z79.01 Long term (current) use of anticoagulants; Z79.899 Other long term (current) drug therapy; Z96.651 Presence of right artificial knee joint; Z90.49 Acquired absence of other specified parts of digestive tract; Z89.021 Acquired absence of right finger(s); R29.6 Repeated falls

== ENCOUNTER → 2023-03-28 | Outpatient (REF) | payer MEDICARE ==
[~2023-03-28] MED LIST changes: +ACID1TAB PO; +COLA100C5 PO; +CVS1CAP2 PO; +FLOM0.4C39 PO; +MIRA1POW3 PO; +SENN-111 PO
== END ==
LOC: M LAB REF 08:00
PROVIDERS: ATTEND Urology
DX: N20.0 Calculus of kidney (principal); Z01.818 Encounter for other preprocedural examination; N39.0 Urinary tract infection, site not specified

== ENCOUNTER 2023-04-15 06:18 | Day surgery (SDC) | payer MEDICARE ==
[~2023-04-15] VITALS: Ht 182.9 cm; Wt 101.4 kg
[~2023-04-15 06:18] MED LIST changes: +ceFAZolin SOD 2 GM in IV 1 EA IV ONE
[2023-04-15] MEDS ORDERED: LR 1,000 ML IV SCH ×2 (06:45→09:10)
[2023-04-15] MEDS ORDERED: propofoL 200 MG/20 ML VIAL As Ordered ONE (07:06)
[2023-04-15] MEDS ORDERED: fentaNYL 100 MCG/2 ML INJECTION As Ordered ONE ×2 (07:06→07:55)
[2023-04-15] MEDS ORDERED: dexmedeTOMIDine (4MCG/ML)200MCG/50ML BTL (PRECEDEX) As Ordered ONE (07:06)
[2023-04-15] MEDS ORDERED: ONDANSETRON 4MG 2ML VIAL As Ordered ONE (07:06)
[2023-04-15] MEDS ORDERED: LIDOCAINE 2% 100MG/5ML SDV (FOR ANES.) As Ordered ONE (07:07)
[2023-04-15] MEDS ORDERED: propofoL 500 MG/50 ML VIAL As Ordered ONE (07:07)
[2023-04-15] MEDS ORDERED: ISOVUE-300 61% 100ML VIAL As Ordered ONE (07:19)
[2023-04-15] MEDS ORDERED: ceFAZolin 2 GM/D5W 50 ML IV BAG As Ordered ONE (07:24)
[2023-04-15] MEDS ORDERED: ETOMIDATE INJ 20MG/10ML VIAL As Ordered ONE (07:39)
[2023-04-15] MEDS ORDERED: HYDROmorphone HCL 2MG/ML 1ML VIAL As Ordered ONE (08:28)
[2023-04-15] MEDS ORDERED: oxyCODONE 5MG TAB PO PRN (09:10)
[2023-04-15] MEDS ORDERED: HYDROMORPHONE HCL 0.5 MG/ 0.5 ML SYRINGE IV PRN (09:10)
[2023-04-15] MEDS ORDERED: fentaNYL 100 MCG/2 ML INJECTION IV PRN (09:10)
[2023-04-15] MEDS ORDERED: ONDANSETRON 4MG 2ML VIAL IV PRN (09:10)
[2023-04-15] MEDS ORDERED: NYST1POW9 TOP (09:41)
[2023-04-15] MEDS ORDERED: CIPR-249 PO (09:41)
[2023-04-15] MEDS ORDERED: PERCOCET 5MG/325MG TAB PO PRN (09:50)
[2023-04-15 11:00] VITALS: BP 117/71; TEMP 98.1; O2SAT 98
[2023-04-22] MEDS ORDERED: FLOM0.4C39 PO (05:19)
[2023-04-22] MEDS ORDERED: SENN8.6T58 PO (05:19)
[2023-04-22] MEDS ORDERED: RISATAB3 PO (05:19)
[2023-04-22] MEDS ORDERED: NYST1POW9 TOP (05:19)
[2023-04-22] MEDS ORDERED: DOCU100C16 PO (05:19)
[2023-04-23 23:07] LABS: CA Oxalate Dihy 10 % (.); Ca Ox Monohydrate 85 % (.); Size 3x5 mm (.)
== END 2023-04-15 11:10 | disposition home or self-care (01) ==
LOC: M SDC 06:18
PROVIDERS: ATTEND Urology
DX: N20.0 Calculus of kidney (principal); I48.91 Unspecified atrial fibrillation; I10 Essential (primary) hypertension; E78.5 Hyperlipidemia, unspecified; R60.9 Edema, unspecified; F41.9 Anxiety disorder, unspecified; F32.A Depression, unspecified; Z86.73 Personal history of transient ischemic attack (TIA), and cerebral infarction without residual deficits; Z79.01 Long term (current) use of anticoagulants; Z87.891 Personal history of nicotine dependence; Z79.899 Other long term (current) drug therapy
CPT/HCPCS: 52356; 76000; 82365; C1769; C2617; J1170; J2405; J3010; Q9967

== ENCOUNTER → 2023-04-23 | Outpatient (CLI) | payer MEDICARE ==
[~2023-04-23] MED LIST changes: +CIPR-249 PO; +DOCU100C16 PO; +NYST1POW9 TOP; +RISATAB3 PO; +SENN8.6T58 PO; -ceFAZolin SOD 2 GM in IV 1 EA IV ONE
== END ==
LOC: M WUC 10:57
PROVIDERS: ATTEND Urology
DX: N20.0 Calculus of kidney (principal)

== ENCOUNTER → 2023-05-17 | Outpatient (CLI) | payer MEDICARE | LOC: M RAD 11:53 | PROVIDERS: ATTEND Physician Assistant | DX: L97.922 Non-pressure chronic ulcer of unspecified part of left lower leg with fat layer exposed (principal); R68.89 Other general symptoms and signs; I70.203 Unspecified atherosclerosis of native arteries of extremities, bilateral legs ==

== ENCOUNTER → 2023-06-02 | Outpatient (CLI) | payer MEDICARE | LOC: M PLAIMG 10:44 | PROVIDERS: ATTEND Orthopaedic Surgery | DX: Z47.1 Aftercare following joint replacement surgery (principal); S80.02XA Contusion of left knee, initial encounter; Z96.652 Presence of left artificial knee joint; M25.462 Effusion, left knee; X58.XXXA Exposure to other specified factors, initial encounter; Y92.9 Unspecified place or not applicable; Y93.9 Activity, unspecified; Y99.9 Unspecified external cause status ==

== ENCOUNTER 2023-10-14 11:11 | Inpatient (IN) | payer MEDICARE ==
[~2023-10-14] VITALS: Ht 182.9 cm; Wt 96.2 kg
[2023-10-14] MEDS ORDERED: NS 1,000 ML IV ONE (11:25)
[2023-10-14 12:06] LABS: BASO % 0.4 % (0.0-1.0); EOS # 0.1 10^3/uL (0.0-0.5); EOS % 0.6 % (0.0-3.0); HEMATOCRIT 31.8 % (42.0-52.0); LYMPH # 0.9 10^3/uL (1.5-5.0); LYMPH % 8.5 % (24.0-44.0); MEAN CORPUSCULAR HEMOGLOBIN 29.2 pg (27.0-33.0); MEAN CORPUSCULAR HGB CONC 31.4 g/dl (32.0-36.5); MEAN CORPUSCULAR VOLUME 92.7 fl (80.0-96.0); MONO # 0.8 10^3/uL (0.0-0.8); MONO % 7.6 % (2.0-8.0); NEUTROPHILS # 8.7 10^3/uL (1.5-8.5); NEUTROPHILS % 82.1 % (36.0-66.0); PLATELET COUNT, AUTOMATED 247 10^3/uL (150-450); RED BLOOD COUNT 3.43 10^6/uL (4.30-6.10); WHITE BLOOD COUNT 10.6 10^3/uL (4.0-10.0)
[2023-10-14] MEDS ORDERED: MORPHINE 2 MG/ML 1ML VIAL IV ONE (12:10)
[2023-10-14 12:15] LABS: ERYTHROCYTE SEDIMENTATION RATE 127 mm/hr (0-20)
[2023-10-14 12:16] LABS: INR 2.09; PROTHROMBIN TIME 22.8 SECONDS (12.5-14.5)
[2023-10-14 12:17] LABS: C REACTIVE PROTEIN QUANTITATIV 18.3 MG/DL (<1.0)
[2023-10-14 12:19] LABS: ALBUMIN 2.4 G/DL (3.2-5.2); BILIRUBIN,DIRECT 0.6 MG/DL (<0.4); BILIRUBIN,TOTAL 0.9 MG/DL (0.3-1.2); CALCIUM LEVEL 8.5 MG/DL (8.3-10.6); CREATININE FOR GFR 2.35 MG/DL (0.70-1.30); GLOMERULAR FILTRATION RATE 28.3 (>35); POTASSIUM SERUM 3.4 MMOL/L (3.5-5.1); TOTAL PROTEIN 7.2 G/DL (5.7-8.2)
[2023-10-14] MEDS ORDERED: ONDANSETRON 4MG 2ML VIAL IV ONE (12:20)
[2023-10-14] MEDS ORDERED: KCL 10MEQ/100ML SWI (KRUN) 10 MEQ in IV 1 EA IV SCH (13:00)
[2023-10-14] MEDS ORDERED: VANCOMYCIN HCL 1,000 MG, VIAL MATE ADAPTER 1 EACH in D5W 250 ML IV ONE (13:00)
[2023-10-14] MEDS ORDERED: MED REC IN PROGRESS XX SCH (14:10)
[2023-10-14] MEDS ORDERED: MOM 30ML SUSPENSION UDC PO PRN (14:50)
[2023-10-14] MEDS ORDERED: CEFTAROLINE FOSAMIL 200 MG in D5W 50 ML IV SCH (14:50)
[2023-10-14] MEDS ORDERED: CEFEPIME HCL 1 GM in D5W MINI-BAG PLUS 50 ML IV ONE (15:00)
[2023-10-14] MEDS ORDERED: HYDROMORPHONE HCL 0.5 MG/ 0.5 ML SYRINGE IV ONE (15:00)
[2023-10-14] MEDS ORDERED: LORazepam 1 MG TAB PO ONE (15:00)
[2023-10-14] MEDS ORDERED: MIDODRINE 5 MG TAB PO ONE (16:35)
[2023-10-14 17:55] VITALS: BP 125/60; TEMP 97.7; O2SAT 96
[2023-10-14] MEDS: CEFTAROLINE FOSAMIL 300 MG in D5W 50 ML IV SCH (19:35)
[2023-10-14 20:08] LABS: PROCALCITONIN 0.47 ng/ml
[2023-10-14 20:40] VITALS: BP 118/59; TEMP 97.7; O2SAT 92
[2023-10-14] MEDS: DOCUSATE SODIUM 100MG CAPSULE PO SCH (20:55)
[2023-10-14] MEDS: ACETAMINOPHEN TAB 650MG DOSE (2X325MG) PO PRN (20:55)
[2023-10-14] MEDS ORDERED: METO25TA PO (23:28)
[2023-10-14] MEDS ORDERED: METR-265 PO (23:28)
[2023-10-14] MEDS ORDERED: CALC1CAP31 PO (23:28)
[2023-10-14] MEDS ORDERED: PANT40TA29 PO (23:28)
[2023-10-14] MEDS ORDERED: CEFD300CAP PO (23:28)
[2023-10-14] MEDS ORDERED: LINE1TAB PO (23:28)
[2023-10-14] MEDS ORDERED: JARD1TAB PO (23:28)
[2023-10-14] MEDS ORDERED: SPIR-10 PO (23:28)
[2023-10-14] MEDS ORDERED: MIDO10TA PO (23:33)
[2023-10-14] MEDS ORDERED: HOME MED LIST COMPLETE! XX SCH (23:35)
[2023-10-14] MEDS: NYSTATIN 100,000 UNITS/GM TOPICAL PWD 15GM TOP SCH (23:36)
[2023-10-15 01:52] VITALS: BP 90/58; TEMP 99; O2SAT 92
[2023-10-15] MEDS ORDERED: SENNA 8.6 MG TAB (SENOKOT) PO PRN (03:50)
[2023-10-15 05:00] VITALS: BP 96/54; TEMP 97.7; O2SAT 94
[2023-10-15] MEDS ORDERED: PERCOCET 5MG/325MG TAB PO PRN (05:55)
[2023-10-15 06:18] LABS: HEMATOCRIT 28.4 % (42.0-52.0); HEMOGLOBIN 8.6 g/dl (13.5-17.5); MEAN CORPUSCULAR HEMOGLOBIN 28.2 pg (27.0-33.0); MEAN CORPUSCULAR HGB CONC 30.3 g/dl (32.0-36.5); MEAN CORPUSCULAR VOLUME 93.1 fl (80.0-96.0); PLATELET COUNT, AUTOMATED 209 10^3/uL (150-450); RED BLOOD COUNT 3.05 10^6/uL (4.30-6.10); WHITE BLOOD COUNT 9.2 10^3/uL (4.0-10.0)
[2023-10-15] MEDS: CEFTAROLINE FOSAMIL 300 MG in D5W 50 ML IV SCH ×2 (06:29→17:30)
[2023-10-15 06:46] LABS: CALCIUM LEVEL 7.9 MG/DL (8.3-10.6); CREATININE FOR GFR 2.47 MG/DL (0.70-1.30); GLOMERULAR FILTRATION RATE 26.8 (>35)
[2023-10-15] MEDS ORDERED: MIDODRINE 5 MG TAB PO SCH (08:00)
[2023-10-15] MEDS: TORSEMIDE (DEMADEX) 50 MG PER 1/2 TAB PO SCH ×2 (08:34→17:30)
[2023-10-15] MEDS: CALCITRIOL 0.25 MCG CAP (S0169) PO SCH (08:34)
[2023-10-15] MEDS: PANTOPRAZOLE 40MG TAB (PROTONIX) PO SCH (08:34)
[2023-10-15] MEDS: TAMSULOSIN 0.4 MG CAP PO SCH (08:34)
[2023-10-15] MEDS: SERTRALINE HCL 25 MG TABLET PO SCH (08:34)
[2023-10-15] MEDS: DOCUSATE SODIUM 100MG CAPSULE PO SCH ×2 (08:34→20:29)
[2023-10-15] MEDS: SPIRONOLACTONE 25 MG TAB PO SCH (08:34)
[2023-10-15] MEDS: NYSTATIN 100,000 UNITS/GM TOPICAL PWD 15GM TOP SCH ×2 (08:35→20:29)
[2023-10-15] MEDS ORDERED: metOLazone 2.5 MG TAB PO SCH (09:00)
[2023-10-15] MEDS: PERCOCET 5MG/325MG TAB PO PRN (10:45)
[2023-10-15] MEDS: METOPROLOL SUCC *XL* 12.5MG PER 1/2 TAB (TopROL *XL*) PO SCH (13:26)
[2023-10-15] MEDS: APIXABAN 2.5 MG TAB (ELIQUIS) PO SCH ×2 (13:26→20:29)
[2023-10-15] MEDS: MIDODRINE 5 MG TAB PO SCH ×2 (13:27→17:30)
[2023-10-15 14:00] VITALS: BP 91/47; TEMP 97.7; O2SAT 96
[2023-10-15] MEDS: PRAVASTATIN 20 MG TAB PO SCH (20:29)
[2023-10-15 22:00] VITALS: BP 92/46; TEMP 97.5; O2SAT 93
[2023-10-16] VITALS (12 sets, daily range): BP systolic 78–101; BP diastolic 40–54; TEMP 97.3–97.9; O2SAT 93–98
[2023-10-16] MEDS: CEFTAROLINE FOSAMIL 300 MG in D5W 50 ML IV SCH ×2 (05:48→17:58)
[2023-10-16 06:40] LABS: HEMATOCRIT 28.8 % (42.0-52.0); HEMOGLOBIN 8.9 g/dl (13.5-17.5); MEAN CORPUSCULAR HEMOGLOBIN 28.9 pg (27.0-33.0); MEAN CORPUSCULAR HGB CONC 30.9 g/dl (32.0-36.5); MEAN CORPUSCULAR VOLUME 93.5 fl (80.0-96.0); PLATELET COUNT, AUTOMATED 214 10^3/uL (150-450); RED BLOOD COUNT 3.08 10^6/uL (4.30-6.10); WHITE BLOOD COUNT 9.2 10^3/uL (4.0-10.0)
[2023-10-16 07:13] LABS: CALCIUM LEVEL 8.1 MG/DL (8.3-10.6); CREATININE FOR GFR 2.48 MG/DL (0.70-1.30); GLOMERULAR FILTRATION RATE 26.6 (>35); POTASSIUM SERUM 2.9 MMOL/L (3.5-5.1)
[2023-10-16] MEDS ORDERED: LR 1,000 ML IV SCH ×2 (08:20→14:00)
[2023-10-16 08:40] LABS: C REACTIVE PROTEIN QUANTITATIV 11.1 MG/DL (<1.0)
[2023-10-16] MEDS: DOCUSATE SODIUM 100MG CAPSULE PO SCH ×2 (08:59→20:34)
[2023-10-16] MEDS: SERTRALINE HCL 25 MG TABLET PO SCH (08:59)
[2023-10-16] MEDS: TAMSULOSIN 0.4 MG CAP PO SCH (08:59)
[2023-10-16] MEDS: APIXABAN 2.5 MG TAB (ELIQUIS) PO SCH ×2 (08:59→20:34)
[2023-10-16] MEDS: CALCITRIOL 0.25 MCG CAP (S0169) PO SCH (08:59)
[2023-10-16] MEDS: PERCOCET 5MG/325MG TAB PO PRN (08:59)
[2023-10-16] MEDS: SPIRONOLACTONE 25 MG TAB PO SCH ×2 (09:00→09:06)
[2023-10-16] MEDS: TORSEMIDE (DEMADEX) 50 MG PER 1/2 TAB PO SCH (09:00)
[2023-10-16] MEDS: METOPROLOL SUCC *XL* 12.5MG PER 1/2 TAB (TopROL *XL*) PO SCH (09:00)
[2023-10-16] MEDS: POTASSIUM CHLORIDE 10MEQ SR TABLET PO SCH ×2 (09:01→10:31)
[2023-10-16] MEDS: PANTOPRAZOLE 40MG TAB (PROTONIX) PO SCH (09:01)
[2023-10-16 09:02] LABS: ERYTHROCYTE SEDIMENTATION RATE 113 mm/hr (0-20)
[2023-10-16] MEDS: NYSTATIN 100,000 UNITS/GM TOPICAL PWD 15GM TOP SCH ×2 (09:07→21:00)
[2023-10-16] MEDS: MIDODRINE 5 MG TAB PO SCH ×3 (09:07→16:24)
[2023-10-16 09:16] LABS: PROCALCITONIN 0.33 ng/ml
[2023-10-16 13:08] LABS: CALCIUM LEVEL 7.8 MG/DL (8.3-10.6); CREATININE FOR GFR 2.37 MG/DL (0.70-1.30); GLOMERULAR FILTRATION RATE 28.1 (>35); POTASSIUM SERUM 3.4 MMOL/L (3.5-5.1)
[2023-10-16] MEDS: PIPERACILLIN/TAZOBACTAM SOD 2.25 GM in D5W MINI-BAG PLUS 50 ML IV SCH ×2 (14:11→20:34)
[2023-10-16] MEDS ORDERED: POTASSIUM CHLORIDE 10MEQ SR TABLET PO ONE (15:50)
[2023-10-16] MEDS ORDERED: HYDROCORTISONE 100MG/2ML VIAL IV ONE (15:55)
[2023-10-16] MEDS ORDERED: FLUDROCORTISONE ACETATE 0.1 MG TAB PO ONE (17:00)
[2023-10-16] MEDS ORDERED: FUROSEMIDE injection 250 MG in D5W 225 ML IV SCH (18:00)
[2023-10-16 20:27] LABS: MAGNESIUM LEVEL 2.2 MG/DL (1.8-2.4)
[2023-10-16] MEDS: PRAVASTATIN 20 MG TAB PO SCH (20:34)
[2023-10-17] VITALS (7 sets, daily range): BP systolic 80–104; BP diastolic 40–53; TEMP 97–98.1; O2SAT 92–98
[2023-10-17] MEDS: PIPERACILLIN/TAZOBACTAM SOD 2.25 GM in D5W MINI-BAG PLUS 50 ML IV SCH (02:30)
[2023-10-17] MEDS: CEFTAROLINE FOSAMIL 300 MG in D5W 50 ML IV SCH (05:57)
[2023-10-17 06:01] LABS: HEMATOCRIT 31.3 % (42.0-52.0); HEMOGLOBIN 9.6 g/dl (13.5-17.5); MEAN CORPUSCULAR HEMOGLOBIN 28.7 pg (27.0-33.0); MEAN CORPUSCULAR HGB CONC 30.7 g/dl (32.0-36.5); MEAN CORPUSCULAR VOLUME 93.4 fl (80.0-96.0); PLATELET COUNT, AUTOMATED 211 10^3/uL (150-450); RED BLOOD COUNT 3.35 10^6/uL (4.30-6.10)
[2023-10-17 06:35] LABS: CREATININE FOR GFR 2.33 MG/DL (0.70-1.30); GLOMERULAR FILTRATION RATE 28.6 (>35); MAGNESIUM LEVEL 2.3 MG/DL (1.8-2.4); PERCENT SATURATION 19.5 % (19.7-50.0); POTASSIUM SERUM 3.4 MMOL/L (3.5-5.1)
[2023-10-17 06:37] LABS: FERRITIN 131.3 NG/ML (10.5-307.3)
[2023-10-17 06:38] LABS: FOLATE 8.89 NG/ML (>5.4)
[2023-10-17] MEDS: APIXABAN 2.5 MG TAB (ELIQUIS) PO SCH ×2 (08:36→19:58)
[2023-10-17] MEDS: MIDODRINE 5 MG TAB PO SCH ×3 (08:36→15:37)
[2023-10-17] MEDS: CALCITRIOL 0.25 MCG CAP (S0169) PO SCH (08:36)
[2023-10-17] MEDS: PANTOPRAZOLE 40MG TAB (PROTONIX) PO SCH (08:36)
[2023-10-17] MEDS: TAMSULOSIN 0.4 MG CAP PO SCH (08:36)
[2023-10-17] MEDS: ACETAMINOPHEN TAB 650MG DOSE (2X325MG) PO PRN ×3 (08:36→19:58)
[2023-10-17] MEDS: DOCUSATE SODIUM 100MG CAPSULE PO SCH ×2 (08:37→20:01)
[2023-10-17] MEDS: NYSTATIN 100,000 UNITS/GM TOPICAL PWD 15GM TOP SCH ×2 (08:38→20:00)
[2023-10-17] MEDS ORDERED: POTASSIUM CHLORIDE 10MEQ SR TABLET PO ONE (09:00)
[2023-10-17] MEDS: LINEZOLID 600MG TABLET (ZYVOX) PO SCH ×2 (10:22→20:01)
[2023-10-17] MEDS: SPIRONOLACTONE 25 MG TAB PO SCH (10:22)
[2023-10-17] MEDS: TORSEMIDE (DEMADEX) 50 MG PER 1/2 TAB PO SCH ×2 (10:23→17:16)
[2023-10-17] MEDS: FERROUS GLUCONATE 324 MG TAB PO SCH (12:51)
[2023-10-17] MEDS: PRAVASTATIN 20 MG TAB PO SCH (19:58)
[2023-10-18 06:00] VITALS: BP 104/51; TEMP 97.4; O2SAT 96
[2023-10-18 06:52] LABS: HEMATOCRIT 31.4 % (42.0-52.0); HEMOGLOBIN 9.6 g/dl (13.5-17.5); MEAN CORPUSCULAR HEMOGLOBIN 28.8 pg (27.0-33.0); MEAN CORPUSCULAR HGB CONC 30.6 g/dl (32.0-36.5); MEAN CORPUSCULAR VOLUME 94.3 fl (80.0-96.0); PLATELET COUNT, AUTOMATED 230 10^3/uL (150-450); RED BLOOD COUNT 3.33 10^6/uL (4.30-6.10); WHITE BLOOD COUNT 9.3 10^3/uL (4.0-10.0)
[2023-10-18 07:21] LABS: CREATININE FOR GFR 2.32 MG/DL (0.70-1.30); GLOMERULAR FILTRATION RATE 28.8 (>35); POTASSIUM SERUM 3.5 MMOL/L (3.5-5.1)
[2023-10-18] MEDS: FERROUS GLUCONATE 324 MG TAB PO SCH (08:14)
[2023-10-18] MEDS: LINEZOLID 600MG TABLET (ZYVOX) PO SCH (08:14)
[2023-10-18] MEDS: TORSEMIDE (DEMADEX) 50 MG PER 1/2 TAB PO SCH (08:14)
[2023-10-18] MEDS: TAMSULOSIN 0.4 MG CAP PO SCH (08:14)
[2023-10-18] MEDS: CALCITRIOL 0.25 MCG CAP (S0169) PO SCH (08:15)
[2023-10-18] MEDS: MIDODRINE 5 MG TAB PO SCH (08:15)
[2023-10-18] MEDS: DOCUSATE SODIUM 100MG CAPSULE PO SCH (08:15)
[2023-10-18] MEDS: SPIRONOLACTONE 25 MG TAB PO SCH (08:15)
[2023-10-18] MEDS: APIXABAN 2.5 MG TAB (ELIQUIS) PO SCH (08:15)
[2023-10-18] MEDS: PANTOPRAZOLE 40MG TAB (PROTONIX) PO SCH (08:15)
[2023-10-18] MEDS: NYSTATIN 100,000 UNITS/GM TOPICAL PWD 15GM TOP SCH (08:24)
[2023-10-18] MEDS ORDERED: metOLazone 2.5 MG TAB PO SCH (09:00)
[2023-10-18] MEDS ORDERED: LINE1TAB PO (11:06)
[2023-10-18] MEDS ORDERED: FERR32TA PO (11:06)
[2023-10-21] MEDS ORDERED: SERTRALINE HCL 25 MG TABLET PO SCH (09:00)
== END 2023-10-18 11:57 | disposition home or self-care (01) | DRG 602 ==
LOC: EDBD 11:11 → M ED 11:11 → M ED INP 14:47 → M MSPAV 17:55 → M PCU 10-16 14:50 → M MSPAV 10-17 16:42
PROVIDERS: ADMIT Student in an Organized Health Care Education/Training Program; ATTEND Student in an Organized Health Care Education/Training Program
DX: L03.032 Cellulitis of left toe (principal); I50.33 Acute on chronic diastolic (congestive) heart failure; N18.4 Chronic kidney disease, stage 4 (severe); E87.20 Acidosis, unspecified; I13.0 Hypertensive heart and chronic kidney disease with heart failure and stage 1 through stage 4 chronic kidney disease, or unspecified chronic kidney disease; I42.9 Cardiomyopathy, unspecified; L97.529 Non-pressure chronic ulcer of other part of left foot with unspecified severity; I48.91 Unspecified atrial fibrillation; I27.20 Pulmonary hypertension, unspecified; D50.9 Iron deficiency anemia, unspecified; I95.9 Hypotension, unspecified; I08.3 Combined rheumatic disorders of mitral, aortic and tricuspid valves; Z79.899 Other long term (current) drug therapy; E78.5 Hyperlipidemia, unspecified; Z79.01 Long term (current) use of anticoagulants; N40.0 Benign prostatic hyperplasia without lower urinary tract symptoms; M19.90 Unspecified osteoarthritis, unspecified site; F32.A Depression, unspecified; B37.2 Candidiasis of skin and nail; E53.8 Deficiency of other specified B group vitamins; Z89.421 Acquired absence of other right toe(s); Z95.2 Presence of prosthetic heart valve

== ENCOUNTER → 2023-10-25 | Outpatient (REF) | payer MEDICARE ==
[~2023-10-25] MED LIST changes: +CALC1CAP31 PO; +CEFD300CAP PO; +FERR32TA PO; +JARD1TAB PO; +LINE1TAB PO; +METO25TA PO; +PANT40TA29 PO
== END ==
LOC: M LAB REF 15:58
PROVIDERS: ATTEND Internal Medicine
DX: I50.814 Right heart failure due to left heart failure (principal); D63.1 Anemia in chronic kidney disease

== ENCOUNTER → 2023-10-27 | Outpatient (REF) | payer MEDICARE | LOC: M SFHCWOUN 16:35 → M SFHCDERM 16:35 | PROVIDERS: ATTEND Physician Assistant | DX: L97.522 Non-pressure chronic ulcer of other part of left foot with fat layer exposed (principal) ==

== ENCOUNTER → 2023-11-01 | Outpatient (REF) | payer MEDICARE ==
[2023-11-01 16:11] LABS: CALCIUM LEVEL 8.6 MG/DL (8.3-10.6); CREATININE FOR GFR 2.23 MG/DL (0.70-1.30); GLOMERULAR FILTRATION RATE 30.1 (>35); POTASSIUM SERUM 4.4 MMOL/L (3.5-5.1)
== END ==
LOC: M SHH 15:11
PROVIDERS: ATTEND Internal Medicine
DX: I13.0 Hypertensive heart and chronic kidney disease with heart failure and stage 1 through stage 4 chronic kidney disease, or unspecified chronic kidney disease (principal)

== ENCOUNTER → 2023-11-15 | Outpatient (REF) | payer MEDICARE ==
[2023-11-15 18:58] LABS: PERCENT SATURATION 14.3 % (19.7-50.0)
== END ==
LOC: M LAB REF 18:06
PROVIDERS: ATTEND Internal Medicine
DX: I48.21 Permanent atrial fibrillation (principal); D63.1 Anemia in chronic kidney disease; I50.22 Chronic systolic (congestive) heart failure

== ENCOUNTER → 2023-11-29 | Outpatient (REF) | payer MEDICARE ==
[2023-11-29 19:21] LABS: PERCENT SATURATION 7.8 % (19.7-50.0)
== END ==
LOC: M LAB REF 17:35
PROVIDERS: ATTEND Internal Medicine Nephrology
DX: D50.9 Iron deficiency anemia, unspecified (principal)

== ENCOUNTER 2023-12-03 04:26 | Inpatient (IN) | payer MEDICARE ==
[~2023-12-03] VITALS: Ht 185.4 cm; Wt 89.5 kg
[~2023-12-03 04:26] MED LIST changes: -MIRA1POW3 PO; +MIRA33506 PO
[2023-12-03 04:59] LABS: BASO % 0.3 % (0.0-1.0); EOS % 0.5 % (0.0-3.0); HEMATOCRIT 29.6 % (42.0-52.0); HEMOGLOBIN 9.4 g/dl (13.5-17.5); LYMPH # 0.3 10^3/uL (1.5-5.0); LYMPH % 3.5 % (24.0-44.0); MEAN CORPUSCULAR HEMOGLOBIN 30.3 pg (27.0-33.0); MEAN CORPUSCULAR HGB CONC 31.8 g/dl (32.0-36.5); MEAN CORPUSCULAR VOLUME 95.5 fl (80.0-96.0); MONO # 0.6 10^3/uL (0.0-0.8); MONO % 7.8 % (2.0-8.0); NEUTROPHILS # 6.9 10^3/uL (1.5-8.5); NEUTROPHILS % 87.5 % (36.0-66.0); PLATELET COUNT, AUTOMATED 235 10^3/uL (150-450); WHITE BLOOD COUNT 7.9 10^3/uL (4.0-10.0)
[2023-12-03 05:21] LABS: INR 1.52; PROTHROMBIN TIME 17.8 SECONDS (12.5-14.5)
[2023-12-03 05:24] LABS: LIPASE 23 U/L (12-53)
[2023-12-03 05:26] LABS: ALBUMIN 2.4 G/DL (3.2-5.2); ALKALINE PHOSPHATASE 152 U/L (46-116); ALT/SGPT 14 U/L (7.0-40); AST/SGOT 20 U/L (<34); BILIRUBIN,DIRECT 0.5 MG/DL (<0.4); BILIRUBIN,TOTAL 0.8 MG/DL (0.3-1.2); BLOOD UREA NITROGEN 75 MG/DL (9-23); CARBON DIOXIDE LEVEL 27 MMOL/L (20-31); CHLORIDE LEVEL 96 MMOL/L (98-107); CPK CREATINE PHOSPHOKINASE 105 U/L (46-171); CREATININE FOR GFR 2.43 MG/DL (0.70-1.30); GLOMERULAR FILTRATION RATE 27.2 (>35); GLUCOSE, FASTING 155 MG/DL (74-106); POTASSIUM SERUM 3.9 MMOL/L (3.5-5.1); SODIUM LEVEL 133 MMOL/L (136-145)
[2023-12-03 05:29] LABS: CK-MB VALUE MASS < 1.0 NG/ML (<3.6); MB/CK RELATIVE INDEX 0.95 (< OR =4)
[2023-12-03 06:20] LABS: AMORPHOUS SEDIMENT SMALL (NEGATIVE); APPEARANCE, URINE HAZY (CLEAR); BACTERIA, URINE AUTO NEGATIVE (NEGATIVE); BILIRUBIN, URINE AUTO NEGATIVE (NEGATIVE); BLOOD, URINE BLOOD NEGATIVE (NEGATIVE); COLOR, URINE YELLOW (YELLOW); GLUCOSE, URINE (UA) AUTO 3+ mg/dL (NEGATIVE); KETONE, URINE AUTO NEGATIVE (NEGATIVE); LEUKOCYTE ESTERASE, URINE AUTO NEGATIVE (NEGATIVE); NITRITE, URINE AUTO NEGATIVE (NEGATIVE); PROTEIN, URINE AUTO NEGATIVE (NEGATIVE); RBC, URINE AUTO 0 /HPF (0-3); SQUAMOUS EPITHELIAL CELL UR AU 0 /HPF (0-6); WBC, URINE AUTO 2 /HPF (0-3)
[2023-12-03] MEDS: ONDANSETRON 4MG ORAL DISINTEGRATING TAB PO ONE (09:37)
[2023-12-03] MEDS ORDERED: PILL CUTTER 1 EACH XX ONE (11:53)
[2023-12-03] MEDS: oxyCODONE 5MG TAB PO ONE (12:09)
[2023-12-03] MEDS: ACETAMINOPHEN 325 MG TAB PO ONE (12:10)
[2023-12-03] MEDS ORDERED: MIDODRINE 5 MG TAB PO ONE (12:25)
[2023-12-03] MEDS: MIDODRINE 5 MG TAB PO ONE (13:31)
[2023-12-03] MEDS ORDERED: PERCOCET 5MG/325MG TAB PO PRN (17:30)
[2023-12-03 17:59] LABS: SOURCE, BODY FLUID LFT KNEE; SYNOVIAL FLUID COLOR RED (COLORLESS)
[2023-12-03 18:09] LABS: CRYSTALS, BODY FLUID NONE SEEN (NONE SEEN); SOURCE, BODY FLUID CRYSTALS LFT KNEE
[2023-12-03] MEDS ORDERED: HOME MED LIST COMPLETE! XX SCH (18:35)
[2023-12-03 18:37] LABS: PROCALCITONIN 2.41 ng/ml
[2023-12-03 19:00] LABS: ERYTHROCYTE SEDIMENTATION RATE 126 mm/hr (0-20)
[2023-12-03] MEDS ORDERED: SENNA 8.6 MG TAB (SENOKOT) PO PRN (19:05)
[2023-12-03] MEDS: PANTOPRAZOLE 40MG TAB (PROTONIX) PO SCH (20:01)
[2023-12-03] MEDS: VANCOMYCIN HCL 1,000 MG, VIAL MATE ADAPTER 1 EACH in D5W 250 ML IV ONE (20:02)
[2023-12-03 21:24] VITALS: BP 90/69; TEMP 98.5; O2SAT 94
[2023-12-03] MEDS: CEFEPIME HCL 2 GM in D5W MINI-BAG PLUS 50 ML IV SCH (21:40)
[2023-12-03] MEDS: PRAVASTATIN 20 MG TAB PO SCH (21:40)
[2023-12-03] MEDS: TAMSULOSIN 0.4 MG CAP PO SCH (21:40)
[2023-12-03 23:33] LABS: CALCIUM LEVEL 7.4 MG/DL (8.3-10.6); CREATININE FOR GFR 2.51 MG/DL (0.70-1.30); GLOMERULAR FILTRATION RATE 26.2 (>35); MAGNESIUM LEVEL 2.3 MG/DL (1.8-2.4); PHOSPHORUS LEVEL 6.8 MG/DL (2.4-5.1); POTASSIUM SERUM 3.9 MMOL/L (3.5-5.1)
[2023-12-03 23:40] LABS: ALBUMIN 1.9 G/DL (3.2-5.2)
[2023-12-04] VITALS (7 sets, daily range): BP systolic 80–104; BP diastolic 42–58; TEMP 98.4–99.5; O2SAT 94–97
[2023-12-04] MEDS: VANCOMYCIN HCL 1,000 MG, VIAL MATE ADAPTER 1 EACH in D5W 250 ML IV SCH (05:31)
[2023-12-04 06:55] LABS: HEMATOCRIT 26.9 % (42.0-52.0); HEMOGLOBIN 8.6 g/dl (13.5-17.5); MEAN CORPUSCULAR VOLUME 93.7 fl (80.0-96.0); PLATELET COUNT, AUTOMATED 244 10^3/uL (150-450); RED BLOOD COUNT 2.87 10^6/uL (4.30-6.10); WHITE BLOOD COUNT 6.5 10^3/uL (4.0-10.0)
[2023-12-04 07:26] LABS: CALCIUM LEVEL 7.1 MG/DL (8.3-10.6); CREATININE FOR GFR 2.62 MG/DL (0.70-1.30); GLOMERULAR FILTRATION RATE 24.9 (>35); MAGNESIUM LEVEL 2.3 MG/DL (1.8-2.4); PHOSPHORUS LEVEL 7.4 MG/DL (2.4-5.1); POTASSIUM SERUM 3.9 MMOL/L (3.5-5.1)
[2023-12-04] MEDS: FERROUS GLUCONATE 324 MG TAB PO SCH (08:33)
[2023-12-04] MEDS: MIDODRINE 5 MG TAB PO SCH (08:33)
[2023-12-04] MEDS: CALCITRIOL 0.25 MCG CAP (S0169) PO SCH (08:33)
[2023-12-04] MEDS: DOCUSATE SODIUM 100MG CAPSULE PO PRN (14:51)
[2023-12-04] MEDS: PERCOCET 5MG/325MG TAB PO PRN (14:51)
[2023-12-04] MEDS: ONDANSETRON 4MG 2ML VIAL IV PRN (15:25)
[2023-12-05] VITALS: BP 99/55; TEMP 99; O2SAT 97
[2023-12-05] MEDS: ACETAMINOPHEN TAB 650MG DOSE (2X325MG) PO PRN (01:12)
[2023-12-05 04:00] VITALS: BP 86/51; TEMP 98.5; O2SAT 96
[2023-12-05 05:33] LABS: HEMATOCRIT 27.8 % (42.0-52.0); MEAN CORPUSCULAR HEMOGLOBIN 29.5 pg (27.0-33.0); MEAN CORPUSCULAR HGB CONC 32.4 g/dl (32.0-36.5); MEAN CORPUSCULAR VOLUME 91.1 fl (80.0-96.0); PLATELET COUNT, AUTOMATED 249 10^3/uL (150-450); RED BLOOD COUNT 3.05 10^6/uL (4.30-6.10)
[2023-12-05 05:54] LABS: CALCIUM LEVEL 6.8 MG/DL (8.3-10.6); CREATININE FOR GFR 2.82 MG/DL (0.70-1.30); GLOMERULAR FILTRATION RATE 22.9 (>35); POTASSIUM SERUM 3.8 MMOL/L (3.5-5.1)
[2023-12-05 06:05] LABS: C REACTIVE PROTEIN QUANTITATIV 30.7 MG/DL (<1.0)
[2023-12-05 08:06] VITALS: BP 93/56; TEMP 98.5; O2SAT 96
[2023-12-05 13:15] VITALS: BP 84/54; TEMP 98.2; O2SAT 97
[2023-12-05 17:31] VITALS: BP 97/54; TEMP 99; O2SAT 95
[2023-12-05] MEDS: CIPROFLOXACIN 500MG TABLET PO SCH (18:35)
[2023-12-05 19:48] VITALS: BP 98/55; TEMP 97.9; O2SAT 94
[2023-12-06] MEDS: CEPHALEXIN 500 MG CAP PO SCH (05:08)
[2023-12-06] MEDS: LOPERAMIDE 2 MG CAPLET PO PRN (05:08)
[2023-12-06 05:12] VITALS: BP 95/51; TEMP 97.9; O2SAT 95
[2023-12-06 06:25] LABS: HEMATOCRIT 28.1 % (42.0-52.0); HEMOGLOBIN 9.1 g/dl (13.5-17.5); MEAN CORPUSCULAR HEMOGLOBIN 29.5 pg (27.0-33.0); MEAN CORPUSCULAR HGB CONC 32.4 g/dl (32.0-36.5); MEAN CORPUSCULAR VOLUME 91.2 fl (80.0-96.0); PLATELET COUNT, AUTOMATED 260 10^3/uL (150-450); RED BLOOD COUNT 3.08 10^6/uL (4.30-6.10); WHITE BLOOD COUNT 11.4 10^3/uL (4.0-10.0)
[2023-12-06 06:58] LABS: CALCIUM LEVEL 6.5 MG/DL (8.3-10.6); CREATININE FOR GFR 2.88 MG/DL (0.70-1.30); GLOMERULAR FILTRATION RATE 22.4 (>35); POTASSIUM SERUM 3.5 MMOL/L (3.5-5.1)
[2023-12-06] MEDS: LACTOBACILLUS ACIDOPHILUS CAP (BACID) PO SCH (10:00)
[2023-12-06 10:02] VITALS: BP 94/51
[2023-12-06 12:01] VITALS: BP 96/53
[2023-12-06 14:00] VITALS: BP 94/55; TEMP 98.1; O2SAT 97
[2023-12-06 16:37] VITALS: BP 94/54
[2023-12-06 19:57] VITALS: BP 107/50; TEMP 98.4; O2SAT 96
[2023-12-07 05:09] VITALS: BP 104/51; TEMP 98.1; O2SAT 96
[2023-12-07 06:11] LABS: HEMATOCRIT 27.5 % (42.0-52.0); MEAN CORPUSCULAR HEMOGLOBIN 29.5 pg (27.0-33.0); MEAN CORPUSCULAR HGB CONC 32.7 g/dl (32.0-36.5); MEAN CORPUSCULAR VOLUME 90.2 fl (80.0-96.0); PLATELET COUNT, AUTOMATED 240 10^3/uL (150-450); RED BLOOD COUNT 3.05 10^6/uL (4.30-6.10); WHITE BLOOD COUNT 11.4 10^3/uL (4.0-10.0)
[2023-12-07 06:27] LABS: CALCIUM LEVEL 6.6 MG/DL (8.3-10.6); CREATININE FOR GFR 2.9 MG/DL (0.70-1.30); GLOMERULAR FILTRATION RATE 22.2 (>35); POTASSIUM SERUM 2.7 MMOL/L (3.5-5.1)
[2023-12-07] MEDS: POTASSIUM CHLORIDE 10MEQ SR TABLET PO ONE ×2 (08:33→18:25)
[2023-12-07 08:34] LABS: MAGNESIUM LEVEL 2.4 MG/DL (1.8-2.4); POTASSIUM SERUM 2.7 MMOL/L (3.5-5.1)
[2023-12-07] MEDS: POTASSIUM CHLORIDE 10MEQ SR TABLET PO SCH (12:23)
[2023-12-07] MEDS: KCL 10MEQ/100ML SWI (KRUN) 10 MEQ in IV 1 EA IV ONE (12:24)
[2023-12-07 14:00] VITALS: BP 102/56; TEMP 97.9; O2SAT 98
[2023-12-07] MEDS: VANCOMYCIN HCL 750 MG, VIAL MATE ADAPTER 1 EACH in D5W 250 ML IV ONE ×2 (18:07→20:01)
[2023-12-07 22:00] VITALS: BP 97/54; TEMP 97.7; O2SAT 98
[2023-12-08] MEDS ORDERED: VANCOMYCIN HCL 1,000 MG, VIAL MATE ADAPTER 1 EACH in D5W 250 ML IV SCH (10:00)
== END 2023-12-07 10:55 | DRG 560 ==
LOC: M ED 04:26 → EDBD 04:26 → M ED INP 18:55 → M PCU 20:12 → M MS5PR 12-05 17:17
PROVIDERS: ADMIT Internal Medicine; ATTEND Family Medicine
PROC: B246ZZZ Ultrasonography of Right and Left Heart (ICD-10-PCS; principal; 2023-12-05)
DX: T84.54XA Infection and inflammatory reaction due to internal left knee prosthesis, initial encounter (principal); I50.32 Chronic diastolic (congestive) heart failure; N18.4 Chronic kidney disease, stage 4 (severe); I95.89 Other hypotension; N40.0 Benign prostatic hyperplasia without lower urinary tract symptoms; I48.91 Unspecified atrial fibrillation; E87.6 Hypokalemia; K42.9 Umbilical hernia without obstruction or gangrene; M19.90 Unspecified osteoarthritis, unspecified site; L03.032 Cellulitis of left toe; I27.20 Pulmonary hypertension, unspecified; I08.3 Combined rheumatic disorders of mitral, aortic and tricuspid valves; B96.20 Unspecified Escherichia coli [E. coli] as the cause of diseases classified elsewhere; L97.529 Non-pressure chronic ulcer of other part of left foot with unspecified severity; R26.89 Other abnormalities of gait and mobility; B95.61 Methicillin susceptible Staphylococcus aureus infection as the cause of diseases classified elsewhere; R00.8 Other abnormalities of heart beat; F32.A Depression, unspecified; E78.5 Hyperlipidemia, unspecified; Z89.421 Acquired absence of other right toe(s); Z96.652 Presence of left artificial knee joint; Z79.01 Long term (current) use of anticoagulants; Z79.899 Other long term (current) drug therapy; Z20.822 Contact with and (suspected) exposure to COVID-19

== ENCOUNTER → 2024-03-22 | Outpatient (REF) | payer MEDICARE ==
[2024-03-22 09:50] LABS: BASO % 0.5 % (0.0-1.0); EOS # 0.2 10^3/uL (0.0-0.5); EOS % 2.2 % (0.0-3.0); HEMATOCRIT 27.8 % (42.0-52.0); HEMOGLOBIN 8.3 g/dl (13.5-17.5); LYMPH # 1.2 10^3/uL (1.5-5.0); LYMPH % 16.5 % (24.0-44.0); MEAN CORPUSCULAR HEMOGLOBIN 26.5 pg (27.0-33.0); MEAN CORPUSCULAR HGB CONC 29.9 g/dl (32.0-36.5); MEAN CORPUSCULAR VOLUME 88.8 fl (80.0-96.0); MONO # 0.6 10^3/uL (0.0-0.8); MONO % 8.7 % (2.0-8.0); NEUTROPHILS # 5.2 10^3/uL (1.5-8.5); PLATELET COUNT, AUTOMATED 283 10^3/uL (150-450); RED BLOOD COUNT 3.13 10^6/uL (4.30-6.10); WHITE BLOOD COUNT 7.3 10^3/uL (4.0-10.0)
[2024-03-22 09:55] LABS: ERYTHROCYTE SEDIMENTATION RATE 101 mm/hr (0-20)
[2024-03-22 10:05] LABS: HEMOGLOBIN A1c 5.3 % (4.0-6.0)
[2024-03-22 10:08] LABS: C REACTIVE PROTEIN QUANTITATIV 5.5 MG/DL (<1.0)
[2024-03-22 10:16] LABS: ALBUMIN 2.4 G/DL (3.2-5.2); BILIRUBIN,TOTAL 0.3 MG/DL (0.3-1.2); CALCIUM LEVEL 8.9 MG/DL (8.3-10.6); CHOLESTEROL RISK RATIO 2.42 (<5); CREATININE FOR GFR 2.08 MG/DL (0.70-1.30); GLOMERULAR FILTRATION RATE 32.5 (>35); HDL CHOLESTEROL 47.9 MG/DL (>40); LDL CHOLESTEROL 57.5 MG/DL (<100); NON-HDL-C 68.1 MG/DL; PTH INTACT 45.3 PG/ML (18.5-88.0); TOTAL PROTEIN 7.3 G/DL (5.7-8.2)
== END ==
LOC: SKLAB2 07:00
PROVIDERS: ATTEND Internal Medicine
DX: T84.54XD Infection and inflammatory reaction due to internal left knee prosthesis, subsequent encounter (principal); E11.618 Type 2 diabetes mellitus with other diabetic arthropathy; E05.80 Other thyrotoxicosis without thyrotoxic crisis or storm

== ENCOUNTER → 2024-03-29 | Outpatient (REF) ==
[2024-03-29 08:56] LABS: BASO % 0.4 % (0.0-1.0); EOS # 0.2 10^3/uL (0.0-0.5); HEMATOCRIT 26.8 % (42.0-52.0); HEMOGLOBIN 8.2 g/dl (13.5-17.5); LYMPH # 1.3 10^3/uL (1.5-5.0); LYMPH % 16.8 % (24.0-44.0); MEAN CORPUSCULAR HEMOGLOBIN 27.2 pg (27.0-33.0); MEAN CORPUSCULAR HGB CONC 30.6 g/dl (32.0-36.5); MEAN CORPUSCULAR VOLUME 88.7 fl (80.0-96.0); MONO # 0.8 10^3/uL (0.0-0.8); MONO % 10.1 % (2.0-8.0); NEUTROPHILS # 5.4 10^3/uL (1.5-8.5); NEUTROPHILS % 69.4 % (36.0-66.0); PLATELET COUNT, AUTOMATED 262 10^3/uL (150-450); RED BLOOD COUNT 3.02 10^6/uL (4.30-6.10); WHITE BLOOD COUNT 7.7 10^3/uL (4.0-10.0)
[2024-03-29 09:10] LABS: ERYTHROCYTE SEDIMENTATION RATE 96 mm/hr (0-20)
[2024-03-29 09:28] LABS: ALBUMIN 2.4 G/DL (3.2-5.2); BILIRUBIN,TOTAL 0.3 MG/DL (0.3-1.2); CALCIUM LEVEL 8.9 MG/DL (8.3-10.6); CREATININE FOR GFR 2.16 MG/DL (0.70-1.30); GLOMERULAR FILTRATION RATE 31.2 (>35); POTASSIUM SERUM 4.2 MMOL/L (3.5-5.1); TOTAL PROTEIN 7.2 G/DL (5.7-8.2)
== END ==
LOC: SKLAB2 07:33
PROVIDERS: ATTEND Internal Medicine
DX: D64.9 Anemia, unspecified (principal); N18.9 Chronic kidney disease, unspecified

== ENCOUNTER → 2024-04-12 | Outpatient (REF) | payer MEDICARE ==
[2024-04-12 09:15] LABS: BASO % 0.4 % (0.0-1.0); EOS # 0.1 10^3/uL (0.0-0.5); EOS % 1.8 % (0.0-3.0); HEMATOCRIT 28.3 % (42.0-52.0); HEMOGLOBIN 8.7 g/dl (13.5-17.5); LYMPH # 1.1 10^3/uL (1.5-5.0); LYMPH % 15.2 % (24.0-44.0); MEAN CORPUSCULAR HEMOGLOBIN 26.4 pg (27.0-33.0); MEAN CORPUSCULAR HGB CONC 30.7 g/dl (32.0-36.5); MONO # 0.7 10^3/uL (0.0-0.8); MONO % 9.3 % (2.0-8.0); NEUTROPHILS # 5.2 10^3/uL (1.5-8.5); PLATELET COUNT, AUTOMATED 247 10^3/uL (150-450); RED BLOOD COUNT 3.29 10^6/uL (4.30-6.10); WHITE BLOOD COUNT 7.1 10^3/uL (4.0-10.0)
[2024-04-12 09:19] LABS: ERYTHROCYTE SEDIMENTATION RATE 87 mm/hr (0-20)
[2024-04-12 09:40] LABS: C REACTIVE PROTEIN QUANTITATIV 7.3 MG/DL (<1.0)
[2024-04-12 09:42] LABS: ALBUMIN 2.6 G/DL (3.2-5.2); BILIRUBIN,TOTAL 0.4 MG/DL (0.3-1.2); CALCIUM LEVEL 8.5 MG/DL (8.3-10.6); CREATININE FOR GFR 2.04 MG/DL (0.70-1.30); GLOMERULAR FILTRATION RATE 33.3 (>35); POTASSIUM SERUM 3.5 MMOL/L (3.5-5.1); TOTAL PROTEIN 7.2 G/DL (5.7-8.2)
== END ==
LOC: SKLAB2 08:02
PROVIDERS: ATTEND Internal Medicine
DX: T84.54XD Infection and inflammatory reaction due to internal left knee prosthesis, subsequent encounter (principal); B95.61 Methicillin susceptible Staphylococcus aureus infection as the cause of diseases classified elsewhere

== ENCOUNTER → 2024-04-19 | Outpatient (REF) | payer MEDICARE ==
[2024-04-19 07:33] LABS: BASO # 0.1 10^3/uL (0.0-0.2); BASO % 0.7 % (0.0-1.0); EOS # 0.2 10^3/uL (0.0-0.5); HEMATOCRIT 30.3 % (42.0-52.0); HEMOGLOBIN 9.4 g/dl (13.5-17.5); LYMPH # 1.3 10^3/uL (1.5-5.0); LYMPH % 17.9 % (24.0-44.0); MEAN CORPUSCULAR HEMOGLOBIN 26.8 pg (27.0-33.0); MEAN CORPUSCULAR VOLUME 86.3 fl (80.0-96.0); MONO # 0.6 10^3/uL (0.0-0.8); MONO % 8.1 % (2.0-8.0); NEUTROPHILS # 5.3 10^3/uL (1.5-8.5); PLATELET COUNT, AUTOMATED 275 10^3/uL (150-450); RED BLOOD COUNT 3.51 10^6/uL (4.30-6.10); WHITE BLOOD COUNT 7.5 10^3/uL (4.0-10.0)
[2024-04-19 07:37] LABS: ERYTHROCYTE SEDIMENTATION RATE 113 mm/hr (0-20)
[2024-04-19 07:56] LABS: C REACTIVE PROTEIN QUANTITATIV 4.3 MG/DL (<1.0)
[2024-04-19 07:58] LABS: BILIRUBIN,TOTAL 0.4 MG/DL (0.3-1.2); CREATININE FOR GFR 2.09 MG/DL (0.70-1.30); GLOMERULAR FILTRATION RATE 32.4 (>35); POTASSIUM SERUM 3.9 MMOL/L (3.5-5.1); TOTAL PROTEIN 7.7 G/DL (5.7-8.2)
== END ==
LOC: SKLAB2 07:00
PROVIDERS: ATTEND Internal Medicine
DX: T84.54XD Infection and inflammatory reaction due to internal left knee prosthesis, subsequent encounter (principal); B95.61 Methicillin susceptible Staphylococcus aureus infection as the cause of diseases classified elsewhere

== ENCOUNTER → 2024-04-24 | Outpatient (CLI) | payer MEDICARE | LOC: M RAD 14:46 | PROVIDERS: ATTEND Internal Medicine | DX: R07.81 Pleurodynia (principal) ==

== ENCOUNTER → 2024-04-24 | Outpatient (REF) | payer MEDICARE | LOC: SKLAB2 14:04 | PROVIDERS: ATTEND Internal Medicine | DX: M81.0 Age-related osteoporosis without current pathological fracture (principal); I27.20 Pulmonary hypertension, unspecified; J90 Pleural effusion, not elsewhere classified ==

== ENCOUNTER → 2024-05-01 | Outpatient (REF) | payer MEDICARE ==
[2024-05-01 15:35] LABS: BASO % 0.6 % (0.0-1.0); EOS # 0.1 10^3/uL (0.0-0.5); EOS % 0.7 % (0.0-3.0); HEMATOCRIT 27.5 % (42.0-52.0); LYMPH # 0.9 10^3/uL (1.5-5.0); LYMPH % 13.2 % (24.0-44.0); MEAN CORPUSCULAR HEMOGLOBIN 25.8 pg (27.0-33.0); MEAN CORPUSCULAR HGB CONC 29.1 g/dl (32.0-36.5); MEAN CORPUSCULAR VOLUME 88.7 fl (80.0-96.0); MONO # 0.5 10^3/uL (0.0-0.8); MONO % 7.8 % (2.0-8.0); NEUTROPHILS # 5.4 10^3/uL (1.5-8.5); NEUTROPHILS % 77.4 % (36.0-66.0); PLATELET COUNT, AUTOMATED 241 10^3/uL (150-450)
[2024-05-01 15:46] LABS: ERYTHROCYTE SEDIMENTATION RATE 88 mm/hr (0-20)
[2024-05-01 16:02] LABS: C REACTIVE PROTEIN QUANTITATIV 9.3 MG/DL (<1.0)
[2024-05-01 16:03] LABS: ALBUMIN 2.9 G/DL (3.2-5.2); BILIRUBIN,TOTAL 0.3 MG/DL (0.3-1.2); CALCIUM LEVEL 8.9 MG/DL (8.3-10.6); CREATININE FOR GFR 2.37 MG/DL (0.70-1.30); POTASSIUM SERUM 3.9 MMOL/L (3.5-5.1); TOTAL PROTEIN 7.5 G/DL (5.7-8.2)
== END ==
LOC: M SHH 14:09
PROVIDERS: ATTEND Nurse Practitioner Family
DX: Z99.89 Dependence on other enabling machines and devices (principal); D68.69 Other thrombophilia; L03.116 Cellulitis of left lower limb; R26.2 Difficulty in walking, not elsewhere classified; N18.32 Chronic kidney disease, stage 3b

== ENCOUNTER → 2024-05-05 | Outpatient (REF) | payer MEDICARE ==
[2024-05-05 13:21] LABS: HEMATOCRIT 26.9 % (42.0-52.0); MEAN CORPUSCULAR HEMOGLOBIN 26.8 pg (27.0-33.0); MEAN CORPUSCULAR HGB CONC 29.7 g/dl (32.0-36.5); PLATELET COUNT, AUTOMATED 231 10^3/uL (150-450); RED BLOOD COUNT 2.99 10^6/uL (4.30-6.10); WHITE BLOOD COUNT 6.2 10^3/uL (4.0-10.0)
[2024-05-05 13:23] LABS: ERYTHROCYTE SEDIMENTATION RATE 72 mm/hr (0-20)
[2024-05-05 14:58] LABS: ALBUMIN 2.9 G/DL (3.2-5.2); BILIRUBIN,TOTAL 0.3 MG/DL (0.3-1.2); CALCIUM LEVEL 9.2 MG/DL (8.3-10.6); CREATININE FOR GFR 2.44 MG/DL (0.70-1.30); GLOMERULAR FILTRATION RATE 27.1 (>35); POTASSIUM SERUM 4.6 MMOL/L (3.5-5.1); TOTAL PROTEIN 7.3 G/DL (5.7-8.2)
== END ==
LOC: M SHH 12:42
PROVIDERS: ATTEND Internal Medicine
DX: D68.69 Other thrombophilia (principal); N18.32 Chronic kidney disease, stage 3b; Z59.89 Other problems related to housing and economic circumstances; R26.2 Difficulty in walking, not elsewhere classified; Z99.89 Dependence on other enabling machines and devices; L03.116 Cellulitis of left lower limb

== ENCOUNTER → 2024-05-08 | Outpatient (REF) | payer MEDICARE ==
[2024-05-08 13:07] LABS: BASO % 0.4 % (0.0-1.0); EOS # 0.2 10^3/uL (0.0-0.5); EOS % 2.2 % (0.0-3.0); HEMATOCRIT 27.4 % (42.0-52.0); HEMOGLOBIN 7.9 g/dl (13.5-17.5); LYMPH # 0.9 10^3/uL (1.5-5.0); MEAN CORPUSCULAR HEMOGLOBIN 26.5 pg (27.0-33.0); MEAN CORPUSCULAR HGB CONC 28.8 g/dl (32.0-36.5); MEAN CORPUSCULAR VOLUME 91.9 fl (80.0-96.0); MONO # 0.7 10^3/uL (0.0-0.8); MONO % 8.9 % (2.0-8.0); NEUTROPHILS # 5.5 10^3/uL (1.5-8.5); NEUTROPHILS % 76.1 % (36.0-66.0); PLATELET COUNT, AUTOMATED 235 10^3/uL (150-450); RED BLOOD COUNT 2.98 10^6/uL (4.30-6.10); WHITE BLOOD COUNT 7.3 10^3/uL (4.0-10.0)
[2024-05-08 13:21] LABS: ERYTHROCYTE SEDIMENTATION RATE 63 mm/hr (0-20)
[2024-05-08 13:46] LABS: C REACTIVE PROTEIN QUANTITATIV 12.9 MG/DL (<1.0)
[2024-05-08 13:48] LABS: ALBUMIN 2.9 G/DL (3.2-5.2); BILIRUBIN,TOTAL 0.3 MG/DL (0.3-1.2); CALCIUM LEVEL 9.2 MG/DL (8.3-10.6); CREATININE FOR GFR 2.39 MG/DL (0.70-1.30); GLOMERULAR FILTRATION RATE 27.7 (>35); POTASSIUM SERUM 4.6 MMOL/L (3.5-5.1); TOTAL PROTEIN 7.4 G/DL (5.7-8.2)
== END ==
LOC: M SHH 10:28
PROVIDERS: ATTEND Nurse Practitioner Family
DX: D68.69 Other thrombophilia (principal); N18.32 Chronic kidney disease, stage 3b; Z59.89 Other problems related to housing and economic circumstances

== ENCOUNTER → 2024-05-09 | Outpatient (CLI) | payer MEDICARE | LOC: M PLAIMG 10:45 | PROVIDERS: ATTEND Nurse Practitioner Family | DX: I50.42 Chronic combined systolic (congestive) and diastolic (congestive) heart failure (principal) ==

== ENCOUNTER → 2024-05-12 | Outpatient (REF) | payer MEDICARE | LOC: M LAB REF 17:24 | PROVIDERS: ATTEND Internal Medicine Nephrology | DX: D50.9 Iron deficiency anemia, unspecified (principal) ==

== ENCOUNTER → 2024-05-15 | Outpatient (REF) | payer MEDICARE ==
[2024-05-15 11:28] LABS: BASO % 0.4 % (0.0-1.0); EOS # 0.1 10^3/uL (0.0-0.5); EOS % 0.9 % (0.0-3.0); HEMATOCRIT 27.6 % (42.0-52.0); HEMOGLOBIN 7.9 g/dl (13.5-17.5); LYMPH # 0.8 10^3/uL (1.5-5.0); LYMPH % 8.4 % (24.0-44.0); MEAN CORPUSCULAR HEMOGLOBIN 26.1 pg (27.0-33.0); MEAN CORPUSCULAR HGB CONC 28.6 g/dl (32.0-36.5); MEAN CORPUSCULAR VOLUME 91.1 fl (80.0-96.0); MONO # 0.6 10^3/uL (0.0-0.8); MONO % 6.4 % (2.0-8.0); NEUTROPHILS # 7.5 10^3/uL (1.5-8.5); NEUTROPHILS % 83.5 % (36.0-66.0); PLATELET COUNT, AUTOMATED 247 10^3/uL (150-450); RED BLOOD COUNT 3.03 10^6/uL (4.30-6.10)
[2024-05-15 11:51] LABS: ERYTHROCYTE SEDIMENTATION RATE 63 mm/hr (0-20)
[2024-05-15 12:02] LABS: ALBUMIN 2.8 G/DL (3.2-5.2); ALKALINE PHOSPHATASE 107 U/L (46-116); ALT/SGPT < 9 U/L (7.0-40); AST/SGOT 12 U/L (<34); BILIRUBIN,TOTAL 0.4 MG/DL (0.3-1.2); BLOOD UREA NITROGEN 81 MG/DL (9-23); CALCIUM LEVEL 8.5 MG/DL (8.3-10.6); CARBON DIOXIDE LEVEL 34 MMOL/L (20-31); CHLORIDE LEVEL 101 MMOL/L (98-107); CREATININE FOR GFR 2.29 MG/DL (0.70-1.30); GLOMERULAR FILTRATION RATE 29.1 (>35); GLUCOSE, FASTING 158 MG/DL (74-106); POTASSIUM SERUM 3.8 MMOL/L (3.5-5.1); SODIUM LEVEL 139 MMOL/L (136-145); TOTAL PROTEIN 7.2 G/DL (5.7-8.2)
== END ==
LOC: M SHH 10:08
PROVIDERS: ATTEND Nurse Practitioner Family
DX: D68.69 Other thrombophilia (principal); N18.32 Chronic kidney disease, stage 3b; Z59.89 Other problems related to housing and economic circumstances; L03.116 Cellulitis of left lower limb; R26.2 Difficulty in walking, not elsewhere classified

== ENCOUNTER → 2024-05-16 | Outpatient (CLI) | payer MEDICARE | LOC: M LAB 15:02 | PROVIDERS: ATTEND Internal Medicine Nephrology | DX: Z01.83 Encounter for blood typing (principal) ==

== ENCOUNTER 2024-05-18 09:50 | Outpatient (CLI) | payer MEDICARE ==
[2024-05-18] VITALS (9 sets, daily range): BP systolic 99–128; BP diastolic 49–73; TEMP 97.3–98.7; O2SAT 95–99
[~2024-05-18] VITALS: Ht 177.8 cm; Wt 95.5 kg
[2024-05-18] MEDS ORDERED: NS 250 ML IV ONE (10:30)
== END 2024-05-18 17:00 ==
LOC: M INFU 09:50
PROVIDERS: ATTEND Internal Medicine Nephrology
DX: N18.9 Chronic kidney disease, unspecified (principal); D63.1 Anemia in chronic kidney disease
CPT/HCPCS: 36430; P9016

== ENCOUNTER → 2024-05-22 | Outpatient (REF) | payer MEDICARE ==
[2024-05-22 12:09] LABS: BASO % 0.3 % (0.0-1.0); EOS # 0.1 10^3/uL (0.0-0.5); EOS % 1.5 % (0.0-3.0); HEMATOCRIT 31.3 % (42.0-52.0); HEMOGLOBIN 9.5 g/dl (13.5-17.5); LYMPH # 0.9 10^3/uL (1.5-5.0); LYMPH % 11.7 % (24.0-44.0); MEAN CORPUSCULAR HEMOGLOBIN 27.7 pg (27.0-33.0); MEAN CORPUSCULAR HGB CONC 30.4 g/dl (32.0-36.5); MEAN CORPUSCULAR VOLUME 91.3 fl (80.0-96.0); MONO # 0.5 10^3/uL (0.0-0.8); NEUTROPHILS % 79.1 % (36.0-66.0); PLATELET COUNT, AUTOMATED 284 10^3/uL (150-450); RED BLOOD COUNT 3.43 10^6/uL (4.30-6.10); WHITE BLOOD COUNT 7.5 10^3/uL (4.0-10.0)
[2024-05-22 12:31] LABS: ERYTHROCYTE SEDIMENTATION RATE 99 mm/hr (0-20)
[2024-05-22 12:39] LABS: C REACTIVE PROTEIN QUANTITATIV 5.8 MG/DL (<1.0)
[2024-05-22 12:41] LABS: ALBUMIN 2.6 G/DL (3.2-5.2); BILIRUBIN,TOTAL 0.5 MG/DL (0.3-1.2); CALCIUM LEVEL 8.5 MG/DL (8.3-10.6); CREATININE FOR GFR 1.93 MG/DL (0.70-1.30); GLOMERULAR FILTRATION RATE 35.5 (>35)
== END ==
LOC: M SHH 10:45
PROVIDERS: ATTEND Nurse Practitioner Family
DX: N18.32 Chronic kidney disease, stage 3b (principal); D68.61 Antiphospholipid syndrome; R26.2 Difficulty in walking, not elsewhere classified

== ENCOUNTER → 2024-06-23 | Outpatient (REF) | payer MEDICARE ==
[2024-06-23 14:05] LABS: BASO # 0.1 10^3/uL (0.0-0.2); BASO % 0.9 % (0.0-1.0); EOS # 0.1 10^3/uL (0.0-0.5); HEMOGLOBIN 7.9 g/dl (13.5-17.5); LYMPH % 17.7 % (24.0-44.0); MEAN CORPUSCULAR HEMOGLOBIN 26.5 pg (27.0-33.0); MEAN CORPUSCULAR HGB CONC 29.3 g/dl (32.0-36.5); MEAN CORPUSCULAR VOLUME 90.6 fl (80.0-96.0); MONO # 0.5 10^3/uL (0.0-0.8); MONO % 8.9 % (2.0-8.0); NEUTROPHILS # 4.1 10^3/uL (1.5-8.5); NEUTROPHILS % 71.2 % (36.0-66.0); PLATELET COUNT, AUTOMATED 197 10^3/uL (150-450); RED BLOOD COUNT 2.98 10^6/uL (4.30-6.10); WHITE BLOOD COUNT 5.8 10^3/uL (4.0-10.0)
[2024-06-23 14:10] LABS: ERYTHROCYTE SEDIMENTATION RATE 78 mm/hr (0-20)
[2024-06-23 14:27] LABS: ALBUMIN 2.9 G/DL (3.2-5.2); ALKALINE PHOSPHATASE 117 U/L (46-116); ALT/SGPT < 9 U/L (7.0-40); AST/SGOT 14 U/L (<34); BILIRUBIN,TOTAL 0.4 MG/DL (0.3-1.2); BLOOD UREA NITROGEN 80 MG/DL (9-23); CARBON DIOXIDE LEVEL 37 MMOL/L (20-31); CHLORIDE LEVEL 100 MMOL/L (98-107); CREATININE FOR GFR 2.45 MG/DL (0.70-1.30); GLOMERULAR FILTRATION RATE 26.9 (>35); GLUCOSE, FASTING 120 MG/DL (74-106); POTASSIUM SERUM 4.3 MMOL/L (3.5-5.1); SODIUM LEVEL 139 MMOL/L (136-145); TOTAL PROTEIN 7.6 G/DL (5.7-8.2)
== END ==
LOC: M LAB REF 12:47 → M SHH 12:47
PROVIDERS: ATTEND Orthopaedic Surgery
DX: M97.12XD Periprosthetic fracture around internal prosthetic left knee joint, subsequent encounter (principal); M17.12 Unilateral primary osteoarthritis, left knee; S22.060A Wedge compression fracture of T7-T8 vertebra, initial encounter for closed fracture; Z96.652 Presence of left artificial knee joint

== ENCOUNTER 2024-06-28 09:09 | Outpatient (CLI) | payer MEDICARE ==
[~2024-06-28] VITALS: Ht 180.3 cm; Wt 104.5 kg
[~2024-06-28 09:09] MED LIST changes: +ALBUTEROL SULFATE 2.5MG/0.5ML INH NEB SOLN INH PRN; +EPINEPHrine INJ 1 MG/ML 1ML AMP IM PRN; +NS 1,000 ML IV SCH; +diphenhydrAMINE 50MG/ML VIAL IV PRN; +methylPREDNISolone 125MG 2ML VIAL IV PRN
[2024-06-28] MEDS: IRON SUCROSE 400 MG in NS 250 ML OVER 2.5 HRS IV ONE (10:12)
[2024-06-28 11:15] VITALS: BP 107/51; O2SAT 96
[2024-06-28 12:15] VITALS: BP 111/71; O2SAT 97
== END 2024-06-28 13:15 ==
LOC: M INFU 09:09
PROVIDERS: ATTEND Internal Medicine Nephrology
DX: D50.9 Iron deficiency anemia, unspecified (principal)
CPT/HCPCS: 11042; 96365; 96366; J1756

== ENCOUNTER 2024-07-26 10:00 | Outpatient (CLI) | payer MEDICARE ==
[~2024-07-26] VITALS: Ht 185.4 cm; Wt 87.7 kg
[2024-07-26 10:00] VITALS: BP 112/57; O2SAT 95
[~2024-07-26 10:00] MED LIST changes: -SENN-111 PO; +SENN-165 PO
[2024-07-26] MEDS: IRON SUCROSE 400 MG in NS 250 ML OVER 2.5 HRS IV ONE (10:38)
[2024-07-26 13:20] VITALS: BP 106/57; O2SAT 100
== END 2024-07-26 13:20 ==
LOC: M INFU 10:00
PROVIDERS: ATTEND Internal Medicine Nephrology
DX: D50.9 Iron deficiency anemia, unspecified (principal)
CPT/HCPCS: 96365; 96366; J1756

== ENCOUNTER → 2024-07-31 | Outpatient (REF) | payer MEDICARE ==
[~2024-07-31] MED LIST changes: -ALBUTEROL SULFATE 2.5MG/0.5ML INH NEB SOLN INH PRN; -EPINEPHrine INJ 1 MG/ML 1ML AMP IM PRN; -NS 1,000 ML IV SCH; -diphenhydrAMINE 50MG/ML VIAL IV PRN; -methylPREDNISolone 125MG 2ML VIAL IV PRN
[2024-07-31 12:08] LABS: BASO % 0.6 % (0.0-1.0); EOS # 0.1 10^3/uL (0.0-0.5); EOS % 1.2 % (0.0-3.0); HEMATOCRIT 29.8 % (42.0-52.0); HEMOGLOBIN 8.8 g/dl (13.5-17.5); LYMPH # 0.9 10^3/uL (1.5-5.0); LYMPH % 18.1 % (24.0-44.0); MEAN CORPUSCULAR HEMOGLOBIN 26.3 pg (27.0-33.0); MEAN CORPUSCULAR HGB CONC 29.5 g/dl (32.0-36.5); MEAN CORPUSCULAR VOLUME 89.2 fl (80.0-96.0); MONO # 0.5 10^3/uL (0.0-0.8); MONO % 9.3 % (2.0-8.0); NEUTROPHILS # 3.6 10^3/uL (1.5-8.5); NEUTROPHILS % 70.6 % (36.0-66.0); PLATELET COUNT, AUTOMATED 201 10^3/uL (150-450); RED BLOOD COUNT 3.34 10^6/uL (4.30-6.10)
[2024-07-31 12:13] LABS: ERYTHROCYTE SEDIMENTATION RATE 108 mm/hr (0-20)
[2024-07-31 12:39] LABS: C REACTIVE PROTEIN QUANTITATIV 3.5 MG/DL (<1.0)
[2024-07-31 12:41] LABS: ALBUMIN 3.1 G/DL (3.2-5.2); BILIRUBIN,TOTAL 0.5 MG/DL (0.3-1.2); CALCIUM LEVEL 9.3 MG/DL (8.3-10.6); CREATININE FOR GFR 2.04 MG/DL (0.70-1.30); GLOMERULAR FILTRATION RATE 33.3 (>35); POTASSIUM SERUM 4.3 MMOL/L (3.5-5.1); TOTAL PROTEIN 7.8 G/DL (5.7-8.2)
== END ==
LOC: M SHH 11:40
PROVIDERS: ATTEND Orthopaedic Surgery
DX: M97.12XD Periprosthetic fracture around internal prosthetic left knee joint, subsequent encounter (principal); Z96.652 Presence of left artificial knee joint; M17.12 Unilateral primary osteoarthritis, left knee; S22.060A Wedge compression fracture of T7-T8 vertebra, initial encounter for closed fracture; X58.XXXA Exposure to other specified factors, initial encounter; Y92.9 Unspecified place or not applicable; Y93.9 Activity, unspecified; Y99.9 Unspecified external cause status

== ENCOUNTER → 2024-08-07 | Outpatient (REF) | payer MEDICARE ==
[2024-08-07 12:01] LABS: APPEARANCE, URINE CLOUDY (CLEAR); BACTERIA, URINE AUTO 1+ (NEGATIVE); BILIRUBIN, URINE AUTO NEGATIVE (NEGATIVE); BLOOD, URINE BLOOD 3+ (NEGATIVE); COLOR, URINE YELLOW (YELLOW); GLUCOSE, URINE (UA) AUTO 1+ mg/dL (NEGATIVE); KETONE, URINE AUTO NEGATIVE (NEGATIVE); LEUKOCYTE ESTERASE, URINE AUTO 3+ (NEGATIVE); MUCUS, URINE SMALL (NEGATIVE); NITRITE, URINE AUTO NEGATIVE (NEGATIVE); PROTEIN, URINE AUTO 1+ mg/dL (NEGATIVE); RBC, URINE AUTO 34 /HPF (0-3); SQUAMOUS EPITHELIAL CELL UR AU 0 /HPF (0-6); UROBILINOGEN, URINE AUTO 0.2 mg/dL (0.0-2.0); WBC, URINE AUTO TNTC /HPF (0-3)
== END ==
LOC: M SHH 11:24
PROVIDERS: ATTEND Internal Medicine
DX: R35.0 Frequency of micturition (principal)

== ENCOUNTER → 2024-10-31 | Outpatient (REF) | payer MEDICARE ==
[~2024-10-31] MED LIST changes: -MIDO10TA PO; +MIDO10TA3 PO; +NYST1POW3 TOP; -NYST1POW9 TOP
[2024-10-31 14:03] LABS: BASO % 0.5 % (0.0-1.0); EOS # 0.1 10^3/uL (0.0-0.5); EOS % 1.3 % (0.0-3.0); HEMATOCRIT 32.4 % (42.0-52.0); HEMOGLOBIN 9.7 g/dl (13.5-17.5); LYMPH # 0.6 10^3/uL (1.5-5.0); LYMPH % 10.5 % (24.0-44.0); MEAN CORPUSCULAR HEMOGLOBIN 28.4 pg (27.0-33.0); MEAN CORPUSCULAR HGB CONC 29.9 g/dl (32.0-36.5); MONO # 0.6 10^3/uL (0.0-0.8); MONO % 10.5 % (2.0-8.0); NEUTROPHILS # 4.6 10^3/uL (1.5-8.5); NEUTROPHILS % 76.9 % (36.0-66.0); PLATELET COUNT, AUTOMATED 189 10^3/uL (150-450); RED BLOOD COUNT 3.41 10^6/uL (4.30-6.10); WHITE BLOOD COUNT 5.9 10^3/uL (4.0-10.0)
[2024-10-31 14:27] LABS: C REACTIVE PROTEIN QUANTITATIV 6.24 MG/DL (<1.0)
[2024-10-31 14:29] LABS: CALCIUM LEVEL 8.7 MG/DL (8.3-10.6); CREATININE FOR GFR 1.98 MG/DL (0.70-1.30); GLOMERULAR FILTRATION RATE 34.5 (>35); POTASSIUM SERUM 4.5 MMOL/L (3.5-5.1)
[2024-10-31 14:35] LABS: ERYTHROCYTE SEDIMENTATION RATE 121 mm/hr (0-20)
== END ==
LOC: M LAB REF 12:57
PROVIDERS: ATTEND Internal Medicine Infectious Disease
DX: A49.01 Methicillin susceptible Staphylococcus aureus infection, unspecified site (principal)

== ENCOUNTER → 2024-11-13 | Outpatient (REF) | payer MEDICARE ==
[2024-11-13 17:49] LABS: PERCENT SATURATION 12.7 % (19.7-50.0)
== END ==
LOC: M LAB REF 16:22
PROVIDERS: ATTEND Internal Medicine
DX: D50.9 Iron deficiency anemia, unspecified (principal)

== ENCOUNTER 2025-05-01 12:12 | Inpatient (IN) | payer MEDICARE ==
[~2025-05-01] VITALS: Ht 182.9 cm; Wt 74.0 kg
[~2025-05-01 12:12] MED LIST changes: +ATOR1TAB19 PO; +CEFA500C2 PO; +ERGO500029 PO; -FLOM0.4C39 PO; +JUVE1POW PO; +LISI40TA10 PO; -LISI40TA4 PO; +MIRT1TAB PO; +POTA10CA70 PO; +PRAV10TA PO; -PRAV10TA4 PO; -PRAV40TA2 PO; +PRAV40TA85 PO; +SENN-186 PO; +SODI650T PO; +TAMS-18 PO; +ZOLO100T PO
[2025-05-01] MEDS ORDERED: CEPH500C PO (13:01)
[2025-05-01] MEDS ORDERED: TORS20TA2 PO (13:01)
[2025-05-01] MEDS ORDERED: MAALOX 30 ML SUSP *UDC PO PRN (13:55)
[2025-05-01] MEDS ORDERED: ACETAMINOPHEN 325 MG TAB PO PRN (13:55)
[2025-05-01] MEDS ORDERED: SIMETHICONE 80MG CHEW TAB PO PRN (13:55)
[2025-05-01] MEDS ORDERED: BISACODYL 5 MG TAB PO PRN (13:55)
[2025-05-01] MEDS ORDERED: MOM 30 ML SUSPENSION UDC PO PRN (13:55)
[2025-05-01] MEDS ORDERED: BISACODYL 10 MG SUPP PR PRN (13:55)
[2025-05-01 14:50] VITALS: BP 99/54; TEMP 98.5; O2SAT 99
[2025-05-01] MEDS: MIDODRINE 5 MG TAB PO SCH (16:25)
[2025-05-01] MEDS: VITAMIN D 50,000 UNITS CAPSULE (ERGOCALCIFEROL 1.25MG) PO SCH (18:31)
[2025-05-01 20:00] VITALS: BP 108/66; TEMP 98.5; O2SAT 97
[2025-05-01] MEDS: SENNA 8.6 MG TAB PO SCH (20:57)
[2025-05-01] MEDS: VANICREAM MOISTURIZING SKIN CREAM 113GM TUBE TOP SCH (20:57)
[2025-05-01] MEDS: HEPARIN SOD 5000 UNITS/ML 1 ML VIAL/SYRINGE SC SCH (20:57)
[2025-05-01] MEDS: ATORVASTATIN 10 MG TAB PO SCH (20:57)
[2025-05-01] MEDS: DOCUSATE SODIUM 100 MG CAPSULE PO SCH (20:58)
[2025-05-01] MEDS: CEPHALEXIN 500 MG CAP PO SCH (20:58)
[2025-05-02 04:00] VITALS: BP 105/58; TEMP 98.5; O2SAT 97
[2025-05-02 06:50] LABS: BASO # 0.1 10^3/uL (0.0-0.2); BASO % 0.9 % (0.0-1.0); EOS # 0.1 10^3/uL (0.0-0.5); EOS % 1.8 % (0.0-3.0); LYMPH # 0.9 10^3/uL (1.5-5.0); LYMPH % 12.3 % (24.0-44.0); MONO # 0.7 10^3/uL (0.0-0.8); MONO % 9.6 % (2.0-8.0); NEUTROPHILS # 5.6 10^3/uL (1.5-8.5); NEUTROPHILS % 75.0 % (36.0-66.0); PLATELET COUNT, AUTOMATED 237 10^3/uL (150-450)
[2025-05-02 07:15] LABS: ALT/SGPT 29.0 U/L (7.0-40); AST/SGOT 39.0 U/L (<34); CALCIUM LEVEL 8.7 MG/DL (8.3-10.6); CARBON DIOXIDE LEVEL 30.0 MMOL/L (20-31); CHLORIDE LEVEL 101.0 MMOL/L (98-107); CREATININE FOR GFR 1.39 MG/DL (0.70-1.30); GLOMERULAR FILTRATION RATE 49.7 (>35); POTASSIUM SERUM 4.7 MMOL/L (3.5-5.1); SODIUM LEVEL 139.0 MMOL/L (136-145)
[2025-05-02] MEDS: MIRALAX *UNIT DOSE* 17 GM PACKET PO SCH (08:13)
[2025-05-02] MEDS: FERROUS GLUCONATE 324 MG TAB PO SCH (08:14)
[2025-05-02] MEDS: SERTRALINE 100 MG TAB PO SCH (08:14)
[2025-05-02] MEDS: CALCITRIOL 0.25 MCG CAP (S0169) PO SCH (08:14)
[2025-05-02] MEDS: NYSTATIN 100,000 UNITS/GM TOPICAL PWD 15 GM TOP SCH (08:15)
[2025-05-02] MEDS: TORSEMIDE 20 MG TAB PO ONE (10:38)
[2025-05-02 12:12] VITALS: BP 107/54; TEMP 98.4; O2SAT 100
[2025-05-02 19:37] VITALS: BP 96/50; TEMP 98.8; O2SAT 99
[2025-05-02] MEDS: TAMSULOSIN 0.4 MG CAP PO SCH (20:50)
[2025-05-03 03:37] VITALS: BP 95/52; TEMP 98.1; O2SAT 98
[2025-05-03] MEDS: TORSEMIDE 20 MG TAB PO SCH (08:08)
[2025-05-03 12:00] VITALS: BP 96/55; TEMP 97.8; O2SAT 99
[2025-05-03 19:26] VITALS: BP 113/57; TEMP 97.8; O2SAT 99
[2025-05-04 03:41] VITALS: BP 95/55; TEMP 98.5; O2SAT 98
[2025-05-04 08:37] LABS: BASO # 0.0 10^3/uL (0.0-0.2); BASO % 0.6 % (0.0-1.0); EOS # 0.1 10^3/uL (0.0-0.5); EOS % 1.9 % (0.0-3.0); LYMPH # 0.7 10^3/uL (1.5-5.0); LYMPH % 13.4 % (24.0-44.0); MONO # 0.5 10^3/uL (0.0-0.8); MONO % 8.9 % (2.0-8.0); NEUTROPHILS # 4.0 10^3/uL (1.5-8.5); NEUTROPHILS % 75.0 % (36.0-66.0); PLATELET COUNT, AUTOMATED 206 10^3/uL (150-450)
[2025-05-04 09:04] LABS: CALCIUM LEVEL 8.4 MG/DL (8.3-10.6); CARBON DIOXIDE LEVEL 30.0 MMOL/L (20-31); CHLORIDE LEVEL 99.0 MMOL/L (98-107); CREATININE FOR GFR 1.4 MG/DL (0.70-1.30); GLOMERULAR FILTRATION RATE 49.3 (>35); POTASSIUM SERUM 4.5 MMOL/L (3.5-5.1); SODIUM LEVEL 138.0 MMOL/L (136-145)
[2025-05-04 12:00] VITALS: BP 96/54; TEMP 98.2; O2SAT 99
[2025-05-04 20:00] VITALS: BP 116/53; TEMP 98.2; O2SAT 99
[2025-05-05 04:00] VITALS: BP 98/53; TEMP 97.6; O2SAT 96
[2025-05-05 11:47] VITALS: BP 91/50; TEMP 98.6; O2SAT 100
[2025-05-05 20:00] VITALS: BP 99/50; TEMP 98.2; O2SAT 98
[2025-05-06 04:00] VITALS: BP 103/59; TEMP 97.7; O2SAT 97
[2025-05-06 08:00] VITALS: BP 103/59; TEMP 97.7; O2SAT 97
[2025-05-06 11:53] VITALS: BP 107/57; TEMP 98.2; O2SAT 96
[2025-05-06 19:28] VITALS: BP 93/54; TEMP 98.8; O2SAT 100
[2025-05-06] MEDS: PERCOCET 5MG/325MG TAB PO PRN (23:17)
[2025-05-07 03:23] VITALS: BP 97/56; TEMP 98.1; O2SAT 100
[2025-05-07 12:00] VITALS: BP 100/55; TEMP 98.2; O2SAT 100
[2025-05-07] MEDS ORDERED: LIDOCAINE 4% CREAM 5 GM (LMX4) TOP PRN (12:20)
[2025-05-07] MEDS: LIDOCAINE 2% JELLY 6 ML SYRINGE TOP PRN (15:49)
[2025-05-07 20:10] VITALS: BP 101/55; TEMP 98.2; O2SAT 99
[2025-05-08 03:17] VITALS: BP 96/51; TEMP 98.4; O2SAT 96
[2025-05-08 12:00] VITALS: BP 96/52; TEMP 98.6; O2SAT 99
[2025-05-08 19:15] VITALS: BP 105/57; TEMP 98.3; O2SAT 98
[2025-05-09 04:05] VITALS: BP 92/54; TEMP 97.9; O2SAT 98
[2025-05-09 11:58] VITALS: BP 109/53; TEMP 98.7; O2SAT 99
[2025-05-09 20:49] VITALS: BP 97/52; TEMP 97.5; O2SAT 92
[2025-05-10] MEDS: PERCOCET 5MG/325MG TAB PO PRN (00:46)
[2025-05-10 04:37] VITALS: BP 99/55; TEMP 97.3; O2SAT 97
[2025-05-10 11:51] VITALS: BP 96/52; TEMP 98.1; O2SAT 96
[2025-05-10] MEDS ORDERED: PERCOCET PO (15:04)
[2025-05-10] MEDS ORDERED: GLYD10GE TOP (15:04)
[2025-05-10] MEDS ORDERED: DIPHCR TOP (15:04)
[2025-05-10] MEDS ORDERED: ACET32TAB PO (15:04)
[2025-05-10] MEDS ORDERED: CEFA500C2 PO (15:04)
[2025-05-10] MEDS ORDERED: COLA100C5 PO (15:04)
[2025-05-10] MEDS ORDERED: MIDO5TA PO (15:04)
[2025-05-10] MEDS ORDERED: FERR32TA PO (15:04)
[2025-05-10 20:00] VITALS: BP 103/57; TEMP 99.5; O2SAT 97
[2025-05-11 04:00] VITALS: BP 92/50; TEMP 98.9; O2SAT 96
[2025-05-11 12:17] VITALS: BP 107/56; TEMP 97.9; O2SAT 97
[2025-05-11 19:28] VITALS: BP 98/52; TEMP 98.2; O2SAT 94
[2025-05-12 03:30] VITALS: BP 98/55; TEMP 97.2; O2SAT 100
[2025-05-12 12:11] VITALS: BP 93/51; TEMP 97.4; O2SAT 96
[2025-05-12 19:51] VITALS: BP 105/51; TEMP 98.5; O2SAT 98
[2025-05-13 05:59] VITALS: BP 97/52; TEMP 98.1; O2SAT 96
[2025-05-13 12:00] VITALS: BP 100/52; TEMP 97.8; O2SAT 97
[2025-05-13 20:00] VITALS: BP 96/53; TEMP 98.6; O2SAT 94
[2025-05-14 06:10] VITALS: BP 97/53; TEMP 97.7; O2SAT 97
[2025-05-14 11:31] VITALS: BP 98/53; TEMP 99.1; O2SAT 95
[2025-05-14 12:01] VITALS: BP 98/53
[2025-05-15] MEDS ORDERED: TORS20TA2 PO (11:52)
[2025-05-17] MEDS ORDERED: DOCU100C17 PO (18:33)
[2025-05-17] MEDS ORDERED: CEFA5SUS PO (18:33)
[2025-05-17] MEDS ORDERED: FERR324T2 PO (18:33)
[2025-05-31] MEDS ORDERED: VITAMIN D 50,000 UNITS CAPSULE (ERGOCALCIFEROL 1.25MG) PO SCH (09:00)
== END 2025-05-14 14:00 | disposition home health service (06) | DRG 603 ==
LOC: M PM&R 14:50
PROVIDERS: ADMIT Physical Medicine & Rehabilitation; ATTEND Physical Medicine & Rehabilitation
DX: L03.115 Cellulitis of right lower limb (principal); I50.32 Chronic diastolic (congestive) heart failure; I95.89 Other hypotension; I25.10 Atherosclerotic heart disease of native coronary artery without angina pectoris; E78.5 Hyperlipidemia, unspecified; I48.91 Unspecified atrial fibrillation; N18.30 Chronic kidney disease, stage 3 unspecified; N40.0 Benign prostatic hyperplasia without lower urinary tract symptoms; Z74.1 Need for assistance with personal care; Z74.09 Other reduced mobility; Z96.652 Presence of left artificial knee joint; E11.22 Type 2 diabetes mellitus with diabetic chronic kidney disease; F32.A Depression, unspecified; F41.9 Anxiety disorder, unspecified; M19.90 Unspecified osteoarthritis, unspecified site; G47.00 Insomnia, unspecified; S70.11XD Contusion of right thigh, subsequent encounter; T84.54XD Infection and inflammatory reaction due to internal left knee prosthesis, subsequent encounter; L89.159 Pressure ulcer of sacral region, unspecified stage; L89.629 Pressure ulcer of left heel, unspecified stage; Z90.49 Acquired absence of other specified parts of digestive tract; Z89.421 Acquired absence of other right toe(s); Z95.5 Presence of coronary angioplasty implant and graft; Z79.01 Long term (current) use of anticoagulants; Z79.2 Long term (current) use of antibiotics; Z79.84 Long term (current) use of oral hypoglycemic drugs; Z88.8 Allergy status to other drugs, medicaments and biological substances; R33.9 Retention of urine, unspecified; I27.20 Pulmonary hypertension, unspecified; I08.0 Rheumatic disorders of both mitral and aortic valves